=== PATIENT | female | born 1955 | race Caucasian/White ===

== ENCOUNTER 2019-06-03 11:08 | Inpatient (IN) | payer OTHER ==
[~2019-06-03] VITALS: Ht 157.5 cm; Wt 103.3 kg
--- NOTE | 2019-06-03 11:21 | NUR ---
PT BIB EMS FOR PROGRESSED SOB FROM YESTERDAY. PT STATES SOB INCREASED LAST NIGHT, HAD TO USE 2 L O2 AND WAS LOW 02 SAT. [facility] AND HAS HAD ISSUES W SOB W ALTITUDE INCREASE. RECENT HOSP FOR PNEUMONIA APPROX A MONTH AGO. PT IS ON 5 L AT 94% OXY MASK. PT DENIES CP. HAS SORE THROAT, INTERMITTENT COUGH. 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 EKG DONE. IV INSERT PER EMS.
[2019-06-03] MEDS ORDERED: MAGNESIUM SULFATE PMX 2GM/50ML 50 ML ONE (11:42)
[2019-06-03] MEDS ORDERED: SODIUM CHLORIDE 0.9% 1,000ML IVBOLUS ONE (12:00)
[2019-06-03] MEDS ORDERED: MAGNESIUM SULFATE PMX 2GM/50ML 50 ML IVPB ONE (12:00)
--- NOTE | 2019-06-03 12:20 | NUR ---
[facility] AT BEDSIDE DISCUSSING POC.
[2019-06-03] MEDS ORDERED: NICOTINE 14MG/24 HR PATCH.TD24 TD SCH (12:30)
[2019-06-03] MEDS ORDERED: BACLOFEN 10 MG TABLET PO PRN (12:30)
[2019-06-03] MEDS ORDERED: GLUCAGON 1 MG IM PRN (12:30)
[2019-06-03] MEDS ORDERED: DEXTROSE 4 GM TAB.CHEW PO PRN (12:30)
[2019-06-03] MEDS ORDERED: ONDANSETRON ODT 4 MG PO PRN (12:30)
[2019-06-03] MEDS ORDERED: hydrALAzine 20 MG/ML, 1ML IVPush PRN (12:30)
[2019-06-03] MEDS ORDERED: DEXTROSE 50%, 50ML SYRINGE IVPush PRN (12:30)
[2019-06-03 12:33] LABS: BASOPHILS # (AUTO) 0.08 x10^3/uL (0-0.1); BASOPHILS % (AUTO) 1 % (0-1); EOSINOPHILS # (AUTO) 0.08 x10^3/uL (0-0.4); EOSINOPHILS % (AUTO) 1 % (1-7); LYMPHOCYTES # (AUTO) 1.82 x10^3/uL (1-3.4); LYMPHOCYTES % (AUTO) 18 % (22-44); MD NO; MEAN CORPUSCULAR HEMOGLOBIN 28.1 pg (27.0-34.8); MEAN CORPUSCULAR HGB CONC 31.1 g/dL (32.4-35.8); MEAN CORPUSCULAR VOLUME 90.2 fL (80-100); MEAN PLATELET VOLUME 6.2 fL (7.4-10.4); MONOCYTES # (AUTO) 0.69 x10^3/uL (0.2-0.8); MONOCYTES % (AUTO) 7 % (2-9); NEUTROPHILS # (AUTO) 7.75 x10^3/uL (1.8-6.8); NEUTROPHILS % (AUTO) 74 % (42-75); PLATELET COUNT 279 x10^3/uL (130-400); RED CELL DISTRIBUTION WIDTH 21.3 % (9.6-15.2)
[2019-06-03 12:45] LABS: ALBUMIN 2.7 g/dL (3.4-5.0); ANION GAP 8 mmol/L (5-15); CALCIUM 8.4 mg/dL (8.5-10.1); CHLORIDE 98 mmol/L (98-107)
[2019-06-03 12:50] LABS: CREATININE 1.01 mg/dL (0.55-1.02)
[2019-06-03 12:51] LABS: TROPONIN I < 0.015 ng/mL (0.000-0.045)
[2019-06-03] MEDS ORDERED: SODIUM CHLORIDE FLUSH 10ML SYR IVF ONE (13:00)
[2019-06-03] MEDS: INSULIN GLARGINE 100 UNITS/ML, PEN SQ-INSULIN SCH (14:00)
[2019-06-03] MEDS ORDERED: METOPROLOL TARTRATE 50 MG TABLET ONE (14:32)
--- NOTE | 2019-06-03 14:40 | NUR ---
PT IN HOSPITAL BED FOR COMFORT. VS STABLE. PT DESATS W AMBULATION 87%. SITTING AT BEDSIDE, 89% ON 5 L NON REBREATHER. NO FURTHER NEEDS.
[2019-06-03] MEDS: METOPROLOL TARTRATE 50 MG TABLET PO SCH ×3 (14:42→17:29)
[2019-06-03] MEDS ORDERED: ATOR10TA9 PO (14:47)
[2019-06-03] MEDS ORDERED: INSU500V SQ (14:47)
[2019-06-03] MEDS ORDERED: LEVA0.6320 INH (14:47)
[2019-06-03] MEDS ORDERED: NPH,100V SC (14:47)
[2019-06-03] MEDS ORDERED: ACYC-114 PO (14:47)
[2019-06-03] MEDS ORDERED: FLUT1DIS3 INH (14:47)
[2019-06-03] MEDS ORDERED: IPRA0.2S35 INH (14:47)
[2019-06-03] MEDS ORDERED: GLIP10TA13 PO (14:47)
[2019-06-03] MEDS ORDERED: BACL20TA PO (14:47)
[2019-06-03] MEDS ORDERED: FURO40TA6 PO (14:47)
[2019-06-03] MEDS ORDERED: POTA20TA6 PO (14:47)
[2019-06-03] MEDS ORDERED: PANT40TA5 PO (14:55)
[2019-06-03] MEDS ORDERED: NICO1PAT31 TD (14:55)
[2019-06-03] MEDS ORDERED: METO25TA35 PO (14:55)
[2019-06-03] MEDS ORDERED: ONDA8TAB16 SL (14:55)
[2019-06-03] MEDS ORDERED: TIOT18CA INH (14:55)
--- NOTE | 2019-06-03 15:11 | NUR ---
BREAK RN: PT ON 100%NRB MASK AT 5L.. O2 DELIEVERY CHANGED TO OXY MASK AND RESP THERAPIST AT BEDSIDE FOR EVAL AND TREATMENT. TREATMENT COMPLETED AND OXY MASK 8L INPLACE. VS NOTED. CALL LIGHT W//I REACH, AT BEDSIDE.
--- NOTE | 2019-06-03 15:16 | NUR ---
PT CURRENTLY ON TAPERING PREDNISONE DOSAGES AT HOME. DISCUSSED WITH DR. BECERRA, HE WILL COVER WITH SOLUMEDROL. INSULIN PENS ORDERED FROM PHARMACY.
[2019-06-03] MEDS ORDERED: INSULIN LISPRO 100 UNITS/ML, PEN SQ-INSULIN SCH (16:00)
[2019-06-03] MEDS ORDERED: LEVOFLOXACIN/PMX 750MG/150ML 150 ML IV SCH (17:00)
[2019-06-03 17:04] VITALS: BP 123/76
[2019-06-03] MEDS: FUROSEMIDE 40 MG/4 ML IV SCH (17:06)
[2019-06-03] MEDS: methylPREDNISolone SOD SUCC 40 MG/ML IV SCH (17:06)
[2019-06-03] MEDS: NICOTINE 7 MG/24 HR PATCH.TD24 TD SCH (17:07)
[2019-06-03] MEDS: INSULIN LISPRO 100 UNITS/ML, PEN SQ-INSULIN SCH ×3 (17:07→22:03)
[2019-06-03] MEDS ORDERED: ENOXAPARIN 30 MG/0.3 ML SQ SCH (19:00)
[2019-06-03] MEDS: ALBUTEROL/IPRATROPIUM 2.5MG/0.5MG, 3 ML NPPB SCH (19:26)
[2019-06-03] MEDS: BUDESONIDE 0.5 MG/2 ML INHA NPPB SCH (19:26)
[2019-06-03 19:38] VITALS: BP 121/81
[2019-06-03] MEDS: SODIUM CHLORIDE FLUSH 10ML SYR IVF SCH (22:01)
[2019-06-03 23:59] VITALS: BP 114/70
[2019-06-04] MEDS ORDERED: FUROSEMIDE 40 MG/4 ML IVPush ONE
[2019-06-04] MEDS ORDERED: OMNIPAQUE 350 MG/ML, 100ML BOTTLE ONE (00:28)
[2019-06-04] MEDS: methylPREDNISolone SOD SUCC 40 MG/ML IV SCH ×3 (00:58→20:09)
[2019-06-04 01:05] VITALS: BP 106/71
[2019-06-04] MEDS ORDERED: TEMAZEPAM 15 MG CAPSULE ONE (01:11)
[2019-06-04] MEDS: TEMAZEPAM 15 MG CAPSULE PO PRN ×2 (01:14→20:10)
[2019-06-04] MEDS ORDERED: HEPARIN 5,000 UNITS/ML, 1ML IV ONE (01:30)
[2019-06-04 01:37] LABS: BASOPHILS # (AUTO) 0.36 x10^3/uL (0-0.1); BASOPHILS % (AUTO) 2 % (0-1); EOSINOPHILS # (AUTO) 0.01 x10^3/uL (0-0.4); EOSINOPHILS % (AUTO) 0 % (1-7); LYMPHOCYTES # (AUTO) 0.98 x10^3/uL (1-3.4); LYMPHOCYTES % (AUTO) 6 % (22-44); MD NO; MEAN CORPUSCULAR HEMOGLOBIN 27.9 pg (27.0-34.8); MEAN CORPUSCULAR VOLUME 90.1 fL (80-100); MEAN PLATELET VOLUME 6.5 fL (7.4-10.4); MONOCYTES # (AUTO) 0.77 x10^3/uL (0.2-0.8); MONOCYTES % (AUTO) 5 % (2-9); NEUTROPHILS # (AUTO) 13.71 x10^3/uL (1.8-6.8); NEUTROPHILS % (AUTO) 87 % (42-75); PLATELET COUNT 256 x10^3/uL (130-400); RED BLOOD COUNT 3.53 x10^6/uL (3.82-5.3)
[2019-06-04 01:48] LABS: ANION GAP 6 mmol/L (5-15); CALCIUM 8.6 mg/dL (8.5-10.1); CHLORIDE 97 mmol/L (98-107); CREATININE 0.99 mg/dL (0.55-1.02)
[2019-06-04] MEDS: HEPARIN 25,000 UNITS/500ML PMX 500 ML IV PRN (02:32)
[2019-06-04] MEDS ORDERED: PANTOPROZOLE 40MG TABLET PO SCH (06:00)
[2019-06-04 06:15] VITALS: BP 128/80
[2019-06-04] MEDS: METOPROLOL TARTRATE 50 MG TABLET PO SCH ×2 (06:16→17:19)
[2019-06-04 07:55] VITALS: BP 117/78
[2019-06-04] MEDS: ALBUTEROL/IPRATROPIUM 2.5MG/0.5MG, 3 ML NPPB SCH ×4 (08:05→19:45)
[2019-06-04] MEDS: BUDESONIDE 0.5 MG/2 ML INHA NPPB SCH ×2 (08:05→20:50)
[2019-06-04] MEDS: FUROSEMIDE 40 MG/4 ML IV SCH ×2 (08:43→17:19)
[2019-06-04] MEDS: INSULIN LISPRO 100 UNITS/ML, PEN SQ-INSULIN SCH ×7 (08:44→20:18)
[2019-06-04] MEDS: INSULIN GLARGINE 100 UNITS/ML, PEN SQ-INSULIN SCH (08:44)
[2019-06-04] MEDS: SODIUM CHLORIDE FLUSH 10ML SYR IVF SCH ×2 (08:45→20:21)
[2019-06-04 14:05] VITALS: BP 117/72
[2019-06-04] MEDS: HEPARIN 5,000 UNITS/ML, 1ML IV PRN ×2 (15:44→23:14)
[2019-06-04] MEDS ORDERED: PANTOPRAZOLE 80 MG in SODIUM CHLORIDE 0.9% 50 ML IV ONE (16:30)
[2019-06-04] MEDS ORDERED: LORazepam 2 MG/ML, 1ML IVPush PRN (16:30)
[2019-06-04 17:15] LABS: RAPID INFLUENZA A Negative (Negative); RAPID INFLUENZA B Negative (Negative)
[2019-06-04] MEDS: NICOTINE 7 MG/24 HR PATCH.TD24 TD SCH (17:19)
[2019-06-04] MEDS ORDERED: LEVOFLOXACIN/PMX 750MG/150ML 150 ML IV SCH (18:00)
[2019-06-04 19:21] LABS: TROPONIN I < 0.015 ng/mL (0.000-0.045)
[2019-06-04] MEDS: PANTOPRAZOLE 80 MG in SODIUM CHLORIDE 0.9% 100 ML IV SCH (19:57)
[2019-06-04] MEDS: DOXYCYCLINE 100 MG in DEXTROSE 5% 250 ML IV SCH (19:58)
[2019-06-04] MEDS: CEFTRIAXONE PMX 1GM/50ML 50 ML IV SCH (19:58)
[2019-06-05 01:49] LABS: TROPONIN I < 0.015 ng/mL (0.000-0.045)
[2019-06-05] MEDS: PANTOPRAZOLE 80 MG in SODIUM CHLORIDE 0.9% 100 ML IV SCH (02:32)
[2019-06-05] MEDS: HEPARIN 25,000 UNITS/500ML PMX 500 ML IV PRN (02:41)
[2019-06-05] MEDS: METOPROLOL TARTRATE 50 MG TABLET PO SCH ×3 (05:54→19:51)
[2019-06-05 06:25] LABS: ALANINE AMINOTRANSFERASE 24 U/L (12-78); ALBUMIN 2.4 g/dL (3.4-5.0); ANION GAP 7 mmol/L (5-15); CALCIUM 9.2 mg/dL (8.5-10.1); CHLORIDE 96 mmol/L (98-107); CREATININE 0.87 mg/dL (0.55-1.02)
[2019-06-05 06:30] LABS: ALKALINE PHOSPHATASE 90 U/L (45-117); BILIRUBIN,TOTAL 0.3 mg/dL (0.2-1.0); TOTAL PROTEIN 6.8 g/dL (6.4-8.2); TROPONIN I < 0.015 ng/mL (0.000-0.045)
[2019-06-05] MEDS: HEPARIN 5,000 UNITS/ML, 1ML IV PRN (06:36)
[2019-06-05 06:49] LABS: MEAN CORPUSCULAR HEMOGLOBIN 28.5 pg (27.0-34.8); MEAN CORPUSCULAR HGB CONC 31.3 g/dL (32.4-35.8); MEAN CORPUSCULAR VOLUME 91.3 fL (80-100); MEAN PLATELET VOLUME 6.2 fL (7.4-10.4); PLATELET COUNT 255 x10^3/uL (130-400); RED BLOOD COUNT 3.28 x10^6/uL (3.82-5.3); RED CELL DISTRIBUTION WIDTH 22.4 % (9.6-15.2)
[2019-06-05] MEDS: ALBUTEROL/IPRATROPIUM 2.5MG/0.5MG, 3 ML NPPB SCH ×4 (07:00→21:30)
[2019-06-05] MEDS: INSULIN LISPRO 100 UNITS/ML, PEN SQ-INSULIN SCH ×7 (07:00→19:59)
[2019-06-05] MEDS: BUDESONIDE 0.5 MG/2 ML INHA NPPB SCH ×2 (07:30→21:30)
[2019-06-05 07:41] LABS: BASOPHILS # (AUTO) 0.08 x10^3/uL (0-0.1); BASOPHILS % (AUTO) 1 % (0-1); EOSINOPHILS % (AUTO) 0 % (1-7); LYMPHOCYTES # (AUTO) 1.56 x10^3/uL (1-3.4); LYMPHOCYTES % (AUTO) 11 % (22-44); MD SCAN; MONOCYTES # (AUTO) 0.39 x10^3/uL (0.2-0.8); MONOCYTES % (AUTO) 3 % (2-9); NEUTROPHILS # (AUTO) 12.76 x10^3/uL (1.8-6.8); NEUTROPHILS % (AUTO) 86 % (42-75)
[2019-06-05] MEDS: DOXYCYCLINE 100 MG in DEXTROSE 5% 250 ML IV SCH ×2 (08:13→19:55)
[2019-06-05] MEDS: FUROSEMIDE 40 MG/4 ML IV SCH ×2 (08:30→18:00)
[2019-06-05] MEDS: INSULIN GLARGINE 100 UNITS/ML, PEN SQ-INSULIN SCH (08:30)
[2019-06-05] MEDS: PANTOPRAZOLE 40 MG IV IVPush SCH ×2 (08:30→19:51)
[2019-06-05] MEDS: SODIUM CHLORIDE FLUSH 10ML SYR IVF SCH ×2 (09:34→19:28)
[2019-06-05] MEDS: methylPREDNISolone SOD SUCC 40 MG/ML IV SCH ×2 (09:34→19:51)
[2019-06-05] MEDS: ENOXAPARIN 100 MG/ML SQ SCH ×2 (09:35→23:50)
[2019-06-05] MEDS: NICOTINE 7 MG/24 HR PATCH.TD24 TD SCH (18:00)
[2019-06-05] MEDS ORDERED: LEVOFLOXACIN/PMX 750MG/150ML 150 ML IV SCH (18:00)
[2019-06-05] MEDS: ONDANSETRON 2MG/ML, 2ML IVPush PRN (19:23)
[2019-06-05] MEDS ORDERED: METOPROLOL 1 MG/ML, 5ML IVPush ONE (19:30)
[2019-06-05] MEDS ORDERED: SODIUM CHLORIDE 0.9%, 500ML IVBOLUS ONE (19:30)
[2019-06-05] MEDS: CEFTRIAXONE PMX 1GM/50ML 50 ML IV SCH (19:55)
[2019-06-05 20:18] LABS: MEAN CORPUSCULAR HEMOGLOBIN 27.7 pg (27.0-34.8); MEAN CORPUSCULAR HGB CONC 30.4 g/dL (32.4-35.8); MEAN CORPUSCULAR VOLUME 91.2 fL (80-100); MEAN PLATELET VOLUME 6.8 fL (7.4-10.4); PLATELET COUNT 281 x10^3/uL (130-400); RED BLOOD COUNT 3.47 x10^6/uL (3.82-5.3); RED CELL DISTRIBUTION WIDTH 22.4 % (9.6-15.2)
[2019-06-05 20:22] LABS: TROPONIN I < 0.015 ng/mL (0.000-0.045)
[2019-06-05 20:27] LABS: MD YES
[2019-06-05] MEDS ORDERED: ESMOLOL/NS PMX 250 ML IV PRN (20:30)
[2019-06-05 20:50] LABS: LYMPH#(MANUAL) 0.51 x10^3/uL (1-3.4); LYMPHS% (MANUAL) 3 % (22-44); MONOS#(MANUAL) 0.17 x10^3/uL (0.3-2.7); MONOS% (MANUAL) 1 % (2-9); SEG#(MANUAL) 16.42 x10^3/uL (1.8-6.8); SEGS% (MANUAL) 96 % (42-75)
[2019-06-05 20:51] LABS: POLYCHROMASIA 1+
[2019-06-05 20:53] LABS: SPHEROCYTES 1+; TEAR DROPS 1+
[2019-06-05 20:54] LABS: <PLATELET ESTIMATE> ADEQUATE; <PLT MORPHOLOGY> NORMAL PLT MORPH; STOMATOCYTES 1+
[2019-06-05 20:57] LABS: ALANINE AMINOTRANSFERASE 26 U/L (12-78); ALBUMIN 2.4 g/dL (3.4-5.0); ANION GAP 11 mmol/L (5-15); CALCIUM 9.2 mg/dL (8.5-10.1); CHLORIDE 95 mmol/L (98-107); CREATININE 1.24 mg/dL (0.55-1.02)
[2019-06-05 20:59] LABS: ALKALINE PHOSPHATASE 105 U/L (45-117); BILIRUBIN,TOTAL 0.4 mg/dL (0.2-1.0); TOTAL PROTEIN 7.2 g/dL (6.4-8.2)
[2019-06-05] MEDS ORDERED: PHENYLEPHRINE 10 MG in SODIUM CHLORIDE 0.9% 249 ML IV PRN (21:30)
[2019-06-05] MEDS: ACETAMINOPHEN 325 MG TABLET PO PRN (21:43)
[2019-06-06] MEDS: ACETAMINOPHEN 325 MG TABLET PO PRN ×2 (04:48→22:30)
[2019-06-06 05:03] LABS: MEAN CORPUSCULAR HEMOGLOBIN 27.9 pg (27.0-34.8); MEAN CORPUSCULAR HGB CONC 30.5 g/dL (32.4-35.8); MEAN CORPUSCULAR VOLUME 91.7 fL (80-100); MEAN PLATELET VOLUME 6.4 fL (7.4-10.4); PLATELET COUNT 274 x10^3/uL (130-400); RED BLOOD COUNT 3.31 x10^6/uL (3.82-5.3); RED CELL DISTRIBUTION WIDTH 22.3 % (9.6-15.2)
[2019-06-06] MEDS: METOPROLOL TARTRATE 50 MG TABLET PO SCH ×3 (05:24→19:14)
[2019-06-06 05:44] LABS: MD YES
[2019-06-06 05:45] LABS: ANISOCYTOSIS 1+; BAND#(MANUAL) 0.28 x10^3/uL; BANDS%(MANUAL) 2 % (0-7); LYMPH#(MANUAL) 3.06 x10^3/uL (1-3.4); LYMPHS% (MANUAL) 22 % (22-44); METAMYELOCYTES# (MANUAL) 0.14 x10^3/uL (0-0); METAMYELOCYTES% (MANUAL) 1 % (0-1); MONOS#(MANUAL) 0.28 x10^3/uL (0.3-2.7); MONOS% (MANUAL) 2 % (2-9); MYELOCYTES# (MANUAL) 0.14 x10^3/uL (0-0); MYELOCYTES% (MANUAL) 1 % (0-0); POLYCHROMASIA 1+; SEG#(MANUAL) 10.01 x10^3/uL (1.8-6.8); SEGS% (MANUAL) 72 % (42-75)
[2019-06-06 05:46] LABS: <PLATELET ESTIMATE> ADEQUATE; <PLT MORPHOLOGY> NORMAL PLT MORPH
[2019-06-06] MEDS: INSULIN GLARGINE 100 UNITS/ML, PEN SQ-INSULIN SCH (05:57)
[2019-06-06] MEDS: INSULIN LISPRO 100 UNITS/ML, PEN SQ-INSULIN SCH ×8 (06:00→20:28)
[2019-06-06] MEDS ORDERED: SUCCINYLCHOLINE 20 MG/ML, 10ML ONE (06:14)
[2019-06-06] MEDS ORDERED: ETOMIDATE 20 MG/10 ML ONE (06:14)
[2019-06-06] MEDS ORDERED: PROPOFOL 10 MG/ML, 100ML IV ONE (06:14)
[2019-06-06] MEDS ORDERED: PANTOPROZOLE 40MG TABLET PO SCH (06:30)
[2019-06-06] MEDS: ALBUTEROL/IPRATROPIUM 2.5MG/0.5MG, 3 ML NPPB SCH (06:56)
[2019-06-06] MEDS: FUROSEMIDE 40 MG/4 ML IV SCH ×2 (07:43→17:02)
[2019-06-06] MEDS: methylPREDNISolone SOD SUCC 40 MG/ML IV SCH ×2 (07:43→20:25)
[2019-06-06] MEDS: SODIUM CHLORIDE FLUSH 10ML SYR IVF SCH ×3 (07:44→19:13)
[2019-06-06] MEDS: METOLAZONE 5 MG TABLET PO SCH ×2 (08:07→17:03)
[2019-06-06] MEDS: DOXYCYCLINE 100 MG in DEXTROSE 5% 250 ML IV SCH ×2 (08:07→19:14)
[2019-06-06] MEDS: PANTOPROZOLE 40MG TABLET PO SCH ×2 (08:07→20:25)
[2019-06-06] MEDS: BUDESONIDE 0.5 MG/2 ML INHA NPPB SCH ×2 (09:00→18:36)
[2019-06-06] MEDS ORDERED: DEXTROSE 50%, 50ML SYRINGE IVPush PRN (10:00)
[2019-06-06] MEDS ORDERED: SENNA/DOCUSATE TABLET NG PRN (10:00)
[2019-06-06] MEDS ORDERED: PHARMACY MAY ADJ FOR RENAL FX MC SCH (10:00)
[2019-06-06] MEDS ORDERED: GLUCAGON 1 MG IM PRN (10:00)
[2019-06-06] MEDS ORDERED: DEXTROSE 4 GM TAB.CHEW PO PRN (10:00)
[2019-06-06] MEDS ORDERED: LACTULOSE 20 GM/30 ML UDC NG PRN (10:00)
[2019-06-06] MEDS ORDERED: BISACODYL 10 MG SUPP PR PRN (10:00)
[2019-06-06] MEDS: ALBUTEROL/IPRATROPIUM 2.5MG/0.5MG, 3 ML INLINE SCH ×4 (10:00→23:05)
[2019-06-06] MEDS ORDERED: SENNA 176 MG/5 ML ORAL SOL NG PRN (10:00)
[2019-06-06] MEDS ORDERED: ETOMIDATE 20 MG/10 ML IVPush ONE (10:30)
[2019-06-06] MEDS ORDERED: SUCCINYLCHOLINE 20 MG/ML, 10ML IVPush ONE (10:30)
[2019-06-06] MEDS: PROPOFOL 100 ML IV PRN ×3 (11:34→20:25)
[2019-06-06] MEDS: ENOXAPARIN 100 MG/ML SQ SCH (14:04)
[2019-06-06] MEDS: FENTANYL PF 100 MCG/2ML IVPush PRN (15:41)
[2019-06-06] MEDS ORDERED: PANTOPRAZOLE 40 MG IV IV SCH (16:00)
[2019-06-06] MEDS: NICOTINE 7 MG/24 HR PATCH.TD24 TD SCH (17:02)
[2019-06-06] MEDS: CEFTRIAXONE PMX 1GM/50ML 50 ML IV SCH (19:14)
[2019-06-06] MEDS ORDERED: DEXMEDETOMIDINE 1,000 MCG in SODIUM CHLORIDE 0.9% 240 ML IV PRN (21:00)
[2019-06-07] MEDS: ALBUTEROL/IPRATROPIUM 2.5MG/0.5MG, 3 ML INLINE SCH ×6 (01:59→22:17)
[2019-06-07] MEDS: ENOXAPARIN 100 MG/ML SQ SCH ×2 (02:46→14:03)
[2019-06-07] MEDS: INSULIN LISPRO 100 UNITS/ML, PEN SQ-INSULIN SCH ×8 (04:09→20:21)
[2019-06-07 04:30] LABS: MEAN CORPUSCULAR HEMOGLOBIN 28.2 pg (27.0-34.8); MEAN CORPUSCULAR HGB CONC 31.5 g/dL (32.4-35.8); MEAN CORPUSCULAR VOLUME 89.4 fL (80-100); MEAN PLATELET VOLUME 6.8 fL (7.4-10.4); PLATELET COUNT 229 x10^3/uL (130-400); RED BLOOD COUNT 3.09 x10^6/uL (3.82-5.3); RED CELL DISTRIBUTION WIDTH 22.3 % (9.6-15.2)
[2019-06-07 04:39] LABS: ANION GAP 9 mmol/L (5-15); CALCIUM 8.8 mg/dL (8.5-10.1); CHLORIDE 92 mmol/L (98-107); CREATININE 1.07 mg/dL (0.55-1.02)
[2019-06-07 05:02] LABS: BASOPHILS # (AUTO) 0.07 x10^3/uL (0-0.1); BASOPHILS % (AUTO) 1 % (0-1); EOSINOPHILS # (AUTO) 0.05 x10^3/uL (0-0.4); EOSINOPHILS % (AUTO) 1 % (1-7); LYMPHOCYTES # (AUTO) 1.34 x10^3/uL (1-3.4); LYMPHOCYTES % (AUTO) 16 % (22-44); MD SCAN; MONOCYTES # (AUTO) 0.32 x10^3/uL (0.2-0.8); MONOCYTES % (AUTO) 4 % (2-9); NEUTROPHILS % (AUTO) 79 % (42-75)
[2019-06-07] MEDS: ACETAMINOPHEN 325 MG TABLET PO PRN (05:16)
[2019-06-07] MEDS: METOPROLOL TARTRATE 50 MG TABLET PO SCH ×2 (05:16→17:30)
[2019-06-07] MEDS: BUDESONIDE 0.5 MG/2 ML INHA NPPB SCH ×2 (06:05→18:24)
[2019-06-07] MEDS: methylPREDNISolone SOD SUCC 40 MG/ML IV SCH ×2 (08:11→20:11)
[2019-06-07] MEDS: PANTOPROZOLE 40MG TABLET PO SCH ×2 (08:11→20:12)
[2019-06-07] MEDS: SODIUM CHLORIDE FLUSH 10ML SYR IVF SCH ×2 (08:12→20:11)
[2019-06-07] MEDS: OXYcodone IR 5MG TABLET PO PRN (08:12)
[2019-06-07] MEDS: INSULIN GLARGINE 100 UNITS/ML, PEN SQ-INSULIN SCH (08:14)
[2019-06-07] MEDS ORDERED: FUROSEMIDE 40 MG/4 ML IV SCH (09:00)
[2019-06-07] MEDS: LIDOCAINE-MPF 1%, 2ML ENDO PRN (09:00)
[2019-06-07] MEDS ORDERED: METOLAZONE 5 MG TABLET PO SCH (09:00)
[2019-06-07] MEDS: FENTANYL PF 100 MCG/2ML IVPush PRN ×3 (09:25→18:42)
[2019-06-07] MEDS: PROPOFOL 100 ML IV PRN ×2 (15:44→20:11)
[2019-06-07] MEDS: NICOTINE 7 MG/24 HR PATCH.TD24 TD SCH (16:25)
[2019-06-07] MEDS: CEFTRIAXONE PMX 1GM/50ML 50 ML IV SCH (20:11)
[2019-06-08] MEDS: PROPOFOL 100 ML IV PRN ×6 (01:03→23:24)
[2019-06-08] MEDS: FENTANYL PF 100 MCG/2ML IVPush PRN ×3 (03:03→17:51)
[2019-06-08] MEDS: ENOXAPARIN 100 MG/ML SQ SCH ×2 (03:03→14:47)
[2019-06-08] MEDS: ALBUTEROL/IPRATROPIUM 2.5MG/0.5MG, 3 ML INLINE SCH ×6 (03:41→22:40)
[2019-06-08] MEDS: INSULIN LISPRO 100 UNITS/ML, PEN SQ-INSULIN SCH ×5 (04:10→20:20)
[2019-06-08 04:46] LABS: MEAN CORPUSCULAR HEMOGLOBIN 27.8 pg (27.0-34.8); MEAN CORPUSCULAR VOLUME 89.6 fL (80-100); MEAN PLATELET VOLUME 7.1 fL (7.4-10.4); PLATELET COUNT 261 x10^3/uL (130-400); RED BLOOD COUNT 3.24 x10^6/uL (3.82-5.3); RED CELL DISTRIBUTION WIDTH 22.1 % (9.6-15.2)
[2019-06-08 04:56] LABS: ANION GAP 8 mmol/L (5-15); CHLORIDE 91 mmol/L (98-107)
[2019-06-08 04:57] LABS: CREATININE 0.79 mg/dL (0.55-1.02)
[2019-06-08] MEDS: METOPROLOL TARTRATE 50 MG TABLET PO SCH ×2 (05:29→17:13)
[2019-06-08 05:42] LABS: BASOPHILS # (AUTO) 0.23 x10^3/uL (0-0.1); BASOPHILS % (AUTO) 3 % (0-1); EOSINOPHILS # (AUTO) 0.05 x10^3/uL (0-0.4); EOSINOPHILS % (AUTO) 1 % (1-7); LYMPHOCYTES # (AUTO) 0.89 x10^3/uL (1-3.4); LYMPHOCYTES % (AUTO) 11 % (22-44); MD SCAN; MONOCYTES # (AUTO) 0.37 x10^3/uL (0.2-0.8); MONOCYTES % (AUTO) 5 % (2-9); NEUTROPHILS # (AUTO) 6.23 x10^3/uL (1.8-6.8); NEUTROPHILS % (AUTO) 80 % (42-75)
[2019-06-08] MEDS: BUDESONIDE 0.5 MG/2 ML INHA NPPB SCH ×2 (06:10→22:40)
[2019-06-08] MEDS: AcetaZOLAMIDE INJ 500 MG IVPush SCH ×2 (08:14→20:20)
[2019-06-08] MEDS: INSULIN GLARGINE 100 UNITS/ML, PEN SQ-INSULIN SCH (08:14)
[2019-06-08] MEDS: methylPREDNISolone SOD SUCC 40 MG/ML IV SCH ×2 (08:15→20:20)
[2019-06-08] MEDS: SODIUM CHLORIDE FLUSH 10ML SYR IVF SCH ×2 (08:15→20:21)
[2019-06-08] MEDS: PANTOPRAZOLE 40 MG IV IVPush SCH ×2 (08:20→20:20)
--- NOTE | 2019-06-08 10:42 | NUR ---
TF GOAL with or without propofol: VITAL HIGH PROTEIN @ 55ML/HR
[2019-06-08] MEDS ORDERED: INSULIN LISPRO 100 UNITS/ML, PEN SQ-INSULIN SCH (11:00)
[2019-06-08] MEDS: NICOTINE 7 MG/24 HR PATCH.TD24 TD SCH (17:14)
[2019-06-08] MEDS: OXYcodone IR 5MG TABLET PO PRN (19:44)
[2019-06-08] MEDS: CEFTRIAXONE PMX 1GM/50ML 50 ML IV SCH (20:15)
[2019-06-08] MEDS: TEMAZEPAM 15 MG CAPSULE PO PRN (22:44)
[2019-06-09] MEDS: ENOXAPARIN 100 MG/ML SQ SCH ×2 (02:07→13:50)
[2019-06-09] MEDS: ALBUTEROL/IPRATROPIUM 2.5MG/0.5MG, 3 ML INLINE SCH ×2 (02:37→06:45)
[2019-06-09] MEDS: INSULIN LISPRO 100 UNITS/ML, PEN SQ-INSULIN SCH ×4 (04:09→20:28)
[2019-06-09] MEDS: PROPOFOL 100 ML IV PRN (04:09)
[2019-06-09] MEDS: LIDOCAINE-MPF 1%, 2ML ENDO PRN (04:30)
[2019-06-09 04:37] LABS: BASOPHILS # (AUTO) 0.08 x10^3/uL (0-0.1); BASOPHILS % (AUTO) 1 % (0-1); EOSINOPHILS % (AUTO) 0 % (1-7); LYMPHOCYTES % (AUTO) 11 % (22-44); MD NO; MEAN CORPUSCULAR HEMOGLOBIN 28.1 pg (27.0-34.8); MEAN CORPUSCULAR HGB CONC 31.5 g/dL (32.4-35.8); MEAN CORPUSCULAR VOLUME 89.3 fL (80-100); MONOCYTES # (AUTO) 0.25 x10^3/uL (0.2-0.8); MONOCYTES % (AUTO) 3 % (2-9); NEUTROPHILS # (AUTO) 6.47 x10^3/uL (1.8-6.8); NEUTROPHILS % (AUTO) 85 % (42-75); PLATELET COUNT 279 x10^3/uL (130-400); RED BLOOD COUNT 3.13 x10^6/uL (3.82-5.3); RED CELL DISTRIBUTION WIDTH 21.8 % (9.6-15.2)
[2019-06-09 04:44] LABS: ANION GAP 9 mmol/L (5-15); CALCIUM 9.1 mg/dL (8.5-10.1); CHLORIDE 92 mmol/L (98-107)
[2019-06-09 04:48] LABS: CREATININE 0.95 mg/dL (0.55-1.02); TRIGLYCERIDES 307 mg/dL (50-200)
[2019-06-09] MEDS: METOPROLOL TARTRATE 50 MG TABLET PO SCH ×2 (05:13→16:15)
[2019-06-09] MEDS: OXYcodone IR 5MG TABLET PO PRN ×2 (05:13→23:41)
[2019-06-09] MEDS: BUDESONIDE 0.5 MG/2 ML INHA NPPB SCH ×2 (06:45→20:06)
[2019-06-09] MEDS ORDERED: INSULIN GLARGINE 100 UNITS/ML, PEN SQ-INSULIN SCH (07:30)
[2019-06-09] MEDS: methylPREDNISolone SOD SUCC 40 MG/ML IV SCH ×2 (07:43→20:26)
[2019-06-09] MEDS: SODIUM CHLORIDE FLUSH 10ML SYR IVF SCH ×2 (07:43→20:27)
[2019-06-09] MEDS: PANTOPRAZOLE 40 MG IV IVPush SCH ×2 (07:43→20:26)
[2019-06-09] MEDS ORDERED: FUROSEMIDE 40 MG/4 ML IV ONE (09:30)
[2019-06-09] MEDS: ALBUTEROL/IPRATROPIUM 2.5MG/0.5MG, 3 ML NPPB SCH ×2 (15:50→20:06)
[2019-06-09] MEDS ORDERED: ACYCLOVIR 400 MG TABLET ONE (16:36)
[2019-06-09] MEDS: NICOTINE 7 MG/24 HR PATCH.TD24 TD SCH (16:43)
[2019-06-09] MEDS: ACYCLOVIR 400 MG TABLET PO SCH (16:44)
[2019-06-09] MEDS ORDERED: POTASSIUM CHLORIDE 20 MEQ TAB.ER.PRT PO SCH (17:00)
[2019-06-09] MEDS ORDERED: ACYCLOVIR 400 MG TABLET PO SCH (17:00)
[2019-06-09] MEDS ORDERED: METOPROLOL TARTRATE 25 MG TABLET ONE (18:33)
[2019-06-09] MEDS ORDERED: METOPROLOL TARTRATE 25 MG TABLET PO ONE ×2 (19:00→20:00)
[2019-06-09] MEDS: CEFTRIAXONE PMX 1GM/50ML 50 ML IV SCH (19:20)
[2019-06-09] MEDS ORDERED: METOPROLOL 1 MG/ML, 5ML ONE (19:33)
[2019-06-09] MEDS ORDERED: METOPROLOL 1 MG/ML, 5ML IVPush ONE (20:00)
[2019-06-09] MEDS ORDERED: ESMOLOL/NS PMX 250 ML IV PRN (20:00)
[2019-06-09] MEDS ORDERED: ESMOLOL 100 MG/10 ML IV ONE (20:00)
[2019-06-09] MEDS: TEMAZEPAM 15 MG CAPSULE PO PRN ×2 (20:39→22:37)
[2019-06-09] MEDS ORDERED: ESMOLOL 100 MG/10 ML IV PRN (22:00)
[2019-06-09] MEDS ORDERED: DIPHENHYDRAMINE 25 MG CAPSULE ONE ×2 (23:49)
[2019-06-09] MEDS: DIPHENHYDRAMINE 25 MG CAPSULE PO PRN (23:51)
[2019-06-10] MEDS ORDERED: DIPHENHYDRAMINE 50 MG CAPSULE PO PRN
[2019-06-10] MEDS: ENOXAPARIN 100 MG/ML SQ SCH (02:00)
[2019-06-10 04:19] LABS: MEAN CORPUSCULAR HEMOGLOBIN 27.5 pg (27.0-34.8); MEAN CORPUSCULAR HGB CONC 30.5 g/dL (32.4-35.8); MEAN PLATELET VOLUME 6.6 fL (7.4-10.4); PLATELET COUNT 280 x10^3/uL (130-400); RED BLOOD COUNT 3.31 x10^6/uL (3.82-5.3); RED CELL DISTRIBUTION WIDTH 22.1 % (9.6-15.2)
[2019-06-10] MEDS: INSULIN LISPRO 100 UNITS/ML, PEN SQ-INSULIN SCH ×4 (04:19→21:04)
[2019-06-10 04:26] LABS: ANION GAP 8 mmol/L (5-15); CALCIUM 8.6 mg/dL (8.5-10.1); CHLORIDE 97 mmol/L (98-107); CREATININE 0.88 mg/dL (0.55-1.02)
[2019-06-10 04:32] LABS: BASOPHILS # (AUTO) 0.09 x10^3/uL (0-0.1); BASOPHILS % (AUTO) 1 % (0-1); EOSINOPHILS # (AUTO) 0.02 x10^3/uL (0-0.4); EOSINOPHILS % (AUTO) 0 % (1-7); LYMPHOCYTES # (AUTO) 1.13 x10^3/uL (1-3.4); LYMPHOCYTES % (AUTO) 14 % (22-44); MD SCAN; MONOCYTES # (AUTO) 0.33 x10^3/uL (0.2-0.8); MONOCYTES % (AUTO) 4 % (2-9); NEUTROPHILS # (AUTO) 6.71 x10^3/uL (1.8-6.8); NEUTROPHILS % (AUTO) 81 % (42-75)
[2019-06-10] MEDS ORDERED: DIGOXIN 0.25 MG/ML, 2ML IVPush ONE (07:00)
[2019-06-10] MEDS ORDERED: INSULIN GLARGINE 100 UNITS/ML, PEN SQ-INSULIN SCH (07:30)
[2019-06-10] MEDS: BUDESONIDE 0.5 MG/2 ML INHA NPPB SCH ×2 (07:30→18:39)
[2019-06-10] MEDS: ALBUTEROL/IPRATROPIUM 2.5MG/0.5MG, 3 ML NPPB SCH ×4 (07:30→18:39)
[2019-06-10] MEDS: METOPROLOL TARTRATE 25 MG TABLET PO SCH ×3 (08:10→22:24)
[2019-06-10] MEDS: PANTOPROZOLE 40MG TABLET PO SCH ×2 (08:10→16:31)
[2019-06-10] MEDS: RIVAROXABAN 20 MG TABLET PO SCH (08:10)
[2019-06-10] MEDS: ACYCLOVIR 400 MG TABLET PO SCH (09:12)
[2019-06-10] MEDS: methylPREDNISolone SOD SUCC 40 MG/ML IV SCH ×2 (09:12→19:31)
[2019-06-10] MEDS: SODIUM CHLORIDE FLUSH 10ML SYR IVF SCH ×2 (09:13→19:31)
[2019-06-10] MEDS ORDERED: FUROSEMIDE 40 MG/4 ML IV ONE (10:30)
[2019-06-10] MEDS: DIPHENHYDRAMINE 25 MG CAPSULE PO PRN (16:37)
[2019-06-10] MEDS: NICOTINE 7 MG/24 HR PATCH.TD24 TD SCH (17:00)
[2019-06-10] MEDS ORDERED: ESMOLOL/NS PMX 250 ML IV PRN (20:00)
[2019-06-10] MEDS: CEFTRIAXONE PMX 1GM/50ML 50 ML IV SCH (21:03)
[2019-06-10] MEDS: OXYcodone IR 5MG TABLET PO PRN (21:51)
[2019-06-10] MEDS: TEMAZEPAM 15 MG CAPSULE PO PRN (21:51)
[2019-06-11] MEDS ORDERED: DIGOXIN 0.25 MG/ML, 2ML IVPush ONE (03:30)
[2019-06-11] MEDS ORDERED: ESMOLOL 100 MG/10 ML IV ONE (05:00)
[2019-06-11] MEDS ORDERED: [UNRECOGNIZED DRUG - OTHER] IV ONE (05:00)
[2019-06-11] MEDS ORDERED: ESMOLOL IV ONE (05:00)
[2019-06-11] MEDS: PANTOPROZOLE 40MG TABLET PO SCH ×2 (06:00→15:32)
[2019-06-11] MEDS: RIVAROXABAN 20 MG TABLET PO SCH (06:00)
[2019-06-11] MEDS: METOPROLOL TARTRATE 25 MG TABLET PO SCH ×3 (06:01→23:56)
[2019-06-11] MEDS: INSULIN LISPRO 100 UNITS/ML, PEN SQ-INSULIN SCH ×4 (06:11→20:48)
[2019-06-11] MEDS: ALBUTEROL/IPRATROPIUM 2.5MG/0.5MG, 3 ML NPPB SCH ×4 (07:00→20:52)
[2019-06-11] MEDS: BUDESONIDE 0.5 MG/2 ML INHA NPPB SCH ×2 (07:00→20:52)
[2019-06-11] MEDS: DIGOXIN 0.25 MG/ML, 2ML IVPush SCH (08:46)
[2019-06-11] MEDS: SODIUM CHLORIDE FLUSH 10ML SYR IVF SCH ×2 (08:48→21:00)
[2019-06-11] MEDS: INSULIN GLARGINE 100 UNITS/ML, PEN SQ-INSULIN SCH (08:48)
[2019-06-11] MEDS: ACYCLOVIR 400 MG TABLET PO SCH (08:50)
[2019-06-11 11:14] VITALS: BP 138/84
[2019-06-11 12:45] VITALS: BP 154/86
[2019-06-11] MEDS: NICOTINE 7 MG/24 HR PATCH.TD24 TD SCH (15:36)
[2019-06-11] MEDS: CEFTRIAXONE PMX 1GM/50ML 50 ML IV SCH (20:47)
[2019-06-11] MEDS: TEMAZEPAM 15 MG CAPSULE PO PRN (21:12)
[2019-06-11] MEDS: OXYcodone IR 5MG TABLET PO PRN (21:12)
[2019-06-11 22:00] VITALS: BP 133/78
[2019-06-12] VITALS (8 sets, daily range): BP systolic 90–137; BP diastolic 60–78
[2019-06-12] MEDS: DIGOXIN 0.25 MG/ML, 2ML IVPush SCH (02:26)
[2019-06-12] MEDS ORDERED: DILTIAZEM 5 MG/ML, 5ML IVPush ONE (03:30)
[2019-06-12] MEDS: LIDODERM 5% PATCH TD SCH (05:00)
[2019-06-12] MEDS ORDERED: NITROGLYCERIN 0.4 MG/SPRAY SL PRN (05:00)
[2019-06-12] MEDS ORDERED: NITROGLYCERIN 0.4 MG BOTTLE (25 TABS) SL PRN (05:00)
[2019-06-12 05:41] LABS: ANION GAP 7 mmol/L (5-15); CALCIUM 9.1 mg/dL (8.5-10.1); CHLORIDE 101 mmol/L (98-107)
[2019-06-12 05:44] LABS: TROPONIN I 0.072 ng/mL (0.000-0.045)
[2019-06-12 06:18] LABS: MEAN CORPUSCULAR HEMOGLOBIN 27.3 pg (27.0-34.8); MEAN CORPUSCULAR HGB CONC 30.8 g/dL (32.4-35.8); MEAN CORPUSCULAR VOLUME 88.8 fL (80-100); MEAN PLATELET VOLUME 7.1 fL (7.4-10.4); PLATELET COUNT 322 x10^3/uL (130-400); RED BLOOD COUNT 3.64 x10^6/uL (3.82-5.3); RED CELL DISTRIBUTION WIDTH 21.6 % (9.6-15.2)
[2019-06-12] MEDS: RIVAROXABAN 20 MG TABLET PO SCH (06:21)
[2019-06-12] MEDS: PANTOPROZOLE 40MG TABLET PO SCH ×2 (06:21→17:55)
[2019-06-12] MEDS: INSULIN LISPRO 100 UNITS/ML, PEN SQ-INSULIN SCH ×4 (07:00→21:01)
[2019-06-12] MEDS: BUDESONIDE 0.5 MG/2 ML INHA NPPB SCH ×2 (07:20→19:11)
[2019-06-12] MEDS: ALBUTEROL/IPRATROPIUM 2.5MG/0.5MG, 3 ML NPPB SCH ×4 (07:20→19:11)
[2019-06-12] MEDS: INSULIN GLARGINE 100 UNITS/ML, PEN SQ-INSULIN SCH (07:30)
[2019-06-12 07:41] LABS: MD YES
[2019-06-12 07:43] LABS: <PLATELET ESTIMATE> ADEQUATE; <PLT MORPHOLOGY> NORMAL PLT MORPH; ANISOCYTOSIS 2+; BAND#(MANUAL) 0.12 x10^3/uL; BANDS%(MANUAL) 1 % (0-7); LYMPHS% (MANUAL) 40 % (22-44); METAMYELOCYTES# (MANUAL) 0.12 x10^3/uL (0-0); METAMYELOCYTES% (MANUAL) 1 % (0-1); MONOS#(MANUAL) 0.24 x10^3/uL (0.3-2.7); MONOS% (MANUAL) 2 % (2-9); POLYCHROMASIA 1+; SEG#(MANUAL) 6.72 x10^3/uL (1.8-6.8); SEGS% (MANUAL) 56 % (42-75)
[2019-06-12] MEDS: METOPROLOL TARTRATE 25 MG TABLET PO SCH ×2 (09:06→17:55)
[2019-06-12] MEDS: morphine SULFATE 10 MG/ML, 1ML IVPush PRN ×2 (09:30→14:17)
[2019-06-12] MEDS: SODIUM CHLORIDE FLUSH 10ML SYR IVF SCH ×2 (10:45→20:54)
[2019-06-12] MEDS: ACYCLOVIR 400 MG TABLET PO SCH (10:45)
[2019-06-12 11:29] LABS: TROPONIN I 0.064 ng/mL (0.000-0.045)
[2019-06-12] MEDS ORDERED: DILTIAZEM 125 MG in SODIUM CHLORIDE 0.9% 100 ML IV SCH (12:00)
[2019-06-12] MEDS: FUROSEMIDE 40 MG/4 ML IV SCH ×2 (12:30→20:54)
[2019-06-12] MEDS: NICOTINE 7 MG/24 HR PATCH.TD24 TD SCH (17:00)
[2019-06-12 17:01] LABS: TROPONIN I 0.103 ng/mL (0.000-0.045)
[2019-06-12] MEDS: CEFTRIAXONE PMX 1GM/50ML 50 ML IV SCH (20:54)
[2019-06-12 22:55] LABS: TROPONIN I 0.078 ng/mL (0.000-0.045)
[2019-06-13] VITALS (11 sets, daily range): BP systolic 94–116; BP diastolic 55–83
[2019-06-13] MEDS: METOPROLOL TARTRATE 25 MG TABLET PO SCH ×3 (01:43→17:00)
[2019-06-13] MEDS: morphine SULFATE 10 MG/ML, 1ML IVPush PRN ×3 (04:13→07:33)
[2019-06-13 05:44] LABS: CHLORIDE 95 mmol/L (98-107)
[2019-06-13] MEDS: LIDODERM 5% PATCH TD SCH (05:49)
[2019-06-13] MEDS: PANTOPROZOLE 40MG TABLET PO SCH ×2 (05:49→18:07)
[2019-06-13] MEDS: RIVAROXABAN 20 MG TABLET PO SCH (05:49)
[2019-06-13 05:58] LABS: MEAN CORPUSCULAR HEMOGLOBIN 28.1 pg (27.0-34.8); MEAN CORPUSCULAR HGB CONC 31.9 g/dL (32.4-35.8); MEAN CORPUSCULAR VOLUME 88.2 fL (80-100); MEAN PLATELET VOLUME 6.9 fL (7.4-10.4); PLATELET COUNT 287 x10^3/uL (130-400); RED BLOOD COUNT 3.38 x10^6/uL (3.82-5.3); RED CELL DISTRIBUTION WIDTH 21.3 % (9.6-15.2)
[2019-06-13 06:04] LABS: ANION GAP 8 mmol/L (5-15); CALCIUM 8.5 mg/dL (8.5-10.1); CREATININE 0.64 mg/dL (0.55-1.02)
[2019-06-13 06:30] LABS: BASOPHILS # (AUTO) 0.14 x10^3/uL (0-0.1); BASOPHILS % (AUTO) 1 % (0-1); EOSINOPHILS # (AUTO) 0.12 x10^3/uL (0-0.4); EOSINOPHILS % (AUTO) 1 % (1-7); LYMPHOCYTES # (AUTO) 2.19 x10^3/uL (1-3.4); LYMPHOCYTES % (AUTO) 22 % (22-44); MD SCAN; MONOCYTES % (AUTO) 5 % (2-9); NEUTROPHILS # (AUTO) 7.05 x10^3/uL (1.8-6.8); NEUTROPHILS % (AUTO) 71 % (42-75)
[2019-06-13] MEDS ORDERED: DILTIAZEM 125 MG in SODIUM CHLORIDE 0.9% 100 ML IV SCH (07:30)
[2019-06-13] MEDS: BUDESONIDE 0.5 MG/2 ML INHA NPPB SCH ×2 (08:05→22:40)
[2019-06-13] MEDS: ALBUTEROL/IPRATROPIUM 2.5MG/0.5MG, 3 ML NPPB SCH ×4 (08:15→22:40)
[2019-06-13] MEDS ORDERED: DIGOXIN 0.25 MG/ML, 2ML IVPush ONE ×2 (08:30→10:00)
[2019-06-13] MEDS: ACYCLOVIR 400 MG TABLET PO SCH (09:20)
[2019-06-13] MEDS: SODIUM CHLORIDE FLUSH 10ML SYR IVF SCH ×2 (09:20→20:38)
[2019-06-13] MEDS: FUROSEMIDE 40 MG/4 ML IV SCH (09:20)
[2019-06-13] MEDS: INSULIN LISPRO 100 UNITS/ML, PEN SQ-INSULIN SCH ×4 (09:34→20:37)
[2019-06-13] MEDS: INSULIN GLARGINE 100 UNITS/ML, PEN SQ-INSULIN SCH (09:35)
[2019-06-13] MEDS: POTASSIUM CHLORIDE 20 MEQ TAB.ER.PRT PO SCH ×2 (09:54→18:07)
[2019-06-13] MEDS ORDERED: MAGNESIUM SULFATE PMX 2GM/50ML 50 ML IV ONE (10:30)
[2019-06-13] MEDS ORDERED: POTASSIUM CHLORIDE 20 MEQ TAB.ER.PRT PO ONE (10:30)
[2019-06-13] MEDS: ONDANSETRON 2MG/ML, 2ML IVPush PRN (10:41)
[2019-06-13] MEDS: NICOTINE 7 MG/24 HR PATCH.TD24 TD SCH (17:00)
[2019-06-13] MEDS ORDERED: POTASSIUM CHLORIDE 20 MEQ TAB.ER.PRT PO SCH (17:00)
[2019-06-13] MEDS: FUROSEMIDE 40 MG TABLET PO SCH (18:07)
[2019-06-13] MEDS ORDERED: BISACODYL 10 MG SUPP PR PRN (18:30)
[2019-06-13] MEDS: OXYcodone IR 5MG TABLET PO PRN (20:58)
[2019-06-14] MEDS: METOPROLOL TARTRATE 25 MG TABLET PO SCH ×3 (01:00→17:56)
[2019-06-14 01:34] VITALS: BP 131/77
[2019-06-14] MEDS: LIDODERM 5% PATCH TD SCH (05:00)
[2019-06-14 05:47] LABS: CHLORIDE 96 mmol/L (98-107)
[2019-06-14 05:57] LABS: ALANINE AMINOTRANSFERASE 38 U/L (12-78); ALBUMIN 2.6 g/dL (3.4-5.0); ALKALINE PHOSPHATASE 85 U/L (45-117); ANION GAP 4 mmol/L (5-15); BILIRUBIN,TOTAL 0.5 mg/dL (0.2-1.0); CALCIUM 8.7 mg/dL (8.5-10.1); CREATININE 0.89 mg/dL (0.55-1.02); TOTAL PROTEIN 6.8 g/dL (6.4-8.2)
[2019-06-14] MEDS ORDERED: HEPARIN 25,000 UNITS/500ML PMX 500 ML IV PRN (06:00)
[2019-06-14] MEDS ORDERED: HEPARIN 5,000 UNITS/ML, 1ML IV PRN (06:00)
[2019-06-14] MEDS ORDERED: HEPARIN 5,000 UNITS/ML, 1ML IV ONE (06:00)
[2019-06-14] MEDS: PANTOPROZOLE 40MG TABLET PO SCH ×2 (06:10→16:14)
[2019-06-14] MEDS: ALBUTEROL/IPRATROPIUM 2.5MG/0.5MG, 3 ML NPPB SCH ×4 (06:36→19:08)
[2019-06-14] MEDS ORDERED: DILTIAZEM 125 MG in SODIUM CHLORIDE 0.9% 100 ML IV SCH (07:30)
[2019-06-14] MEDS ORDERED: INSULIN GLARGINE 100 UNITS/ML, PEN SQ-INSULIN SCH (07:30)
[2019-06-14] MEDS: INSULIN LISPRO 100 UNITS/ML, PEN SQ-INSULIN SCH ×4 (08:09→22:36)
[2019-06-14] MEDS: ONDANSETRON 2MG/ML, 2ML IVPush PRN (08:44)
[2019-06-14] MEDS: ACYCLOVIR 400 MG TABLET PO SCH (08:45)
[2019-06-14] MEDS: FUROSEMIDE 40 MG TABLET PO SCH ×2 (08:46→17:38)
[2019-06-14] MEDS: SODIUM CHLORIDE FLUSH 10ML SYR IVF SCH ×2 (08:48→22:26)
[2019-06-14] MEDS: BUDESONIDE 0.5 MG/2 ML INHA NPPB SCH ×2 (09:00→19:08)
[2019-06-14 09:40] VITALS: BP 107/69
[2019-06-14] MEDS ORDERED: SODIUM CHLORIDE 0.9% 1,000 ML IV SCH (11:52)
[2019-06-14] MEDS ORDERED: CEFAZOLIN PMX 1GM/50ML 50 ML IVPB ONE (13:00)
[2019-06-14] MEDS ORDERED: FENTANYL PF 100 MCG/2ML ONE (13:45)
[2019-06-14] MEDS ORDERED: MIDAZOLAM 1 MG/ML, 5ML ONE (13:45)
[2019-06-14] MEDS ORDERED: LIDOCAINE 2%, 20ML ONE (13:46)
[2019-06-14] MEDS ORDERED: CEFAZOLIN 1,000 MG ONE (13:46)
[2019-06-14] MEDS ORDERED: CEFAZOLIN PMX 1GM/50ML 0 ML ONE (13:46)
[2019-06-14 16:22] VITALS: BP 125/60
[2019-06-14] MEDS: NICOTINE 7 MG/24 HR PATCH.TD24 TD SCH (17:11)
[2019-06-14] MEDS: OXYcodone IR 5MG TABLET PO PRN ×2 (17:59→22:29)
[2019-06-14] MEDS ORDERED: FUROSEMIDE 40 MG/4 ML IV ONE (18:00)
[2019-06-14 22:22] VITALS: BP 118/75
[2019-06-14] MEDS: TEMAZEPAM 15 MG CAPSULE PO PRN (22:27)
[2019-06-15] MEDS: METOPROLOL TARTRATE 25 MG TABLET PO SCH ×3 (01:00→17:24)
[2019-06-15] MEDS ORDERED: HEPARIN 5,000 UNITS/ML, 1ML IV PRN ×2 (04:00→15:30)
[2019-06-15] MEDS ORDERED: HEPARIN 25,000 UNITS/250ML PMX 250 ML IV PRN ×4 (04:00→20:00)
[2019-06-15 04:07] VITALS: BP 113/75
[2019-06-15] MEDS: LIDODERM 5% PATCH TD SCH (05:00)
[2019-06-15 05:13] LABS: ANION GAP 6 mmol/L (5-15); CALCIUM 8.7 mg/dL (8.5-10.1); CHLORIDE 96 mmol/L (98-107); MEAN CORPUSCULAR HEMOGLOBIN 27.1 pg (27.0-34.8); MEAN CORPUSCULAR HGB CONC 30.5 g/dL (32.4-35.8); MEAN CORPUSCULAR VOLUME 88.8 fL (80-100); MEAN PLATELET VOLUME 7.2 fL (7.4-10.4); PLATELET COUNT 291 x10^3/uL (130-400); RED BLOOD COUNT 3.22 x10^6/uL (3.82-5.3)
[2019-06-15 05:15] LABS: CREATININE 0.85 mg/dL (0.55-1.02)
[2019-06-15 05:42] LABS: BASOPHILS # (AUTO) 0.26 x10^3/uL (0-0.1); BASOPHILS % (AUTO) 2 % (0-1); EOSINOPHILS # (AUTO) 0.11 x10^3/uL (0-0.4); EOSINOPHILS % (AUTO) 1 % (1-7); LYMPHOCYTES # (AUTO) 2.42 x10^3/uL (1-3.4); LYMPHOCYTES % (AUTO) 20 % (22-44); MD SCAN; MONOCYTES # (AUTO) 0.56 x10^3/uL (0.2-0.8); MONOCYTES % (AUTO) 5 % (2-9); NEUTROPHILS # (AUTO) 8.59 x10^3/uL (1.8-6.8); NEUTROPHILS % (AUTO) 72 % (42-75); RED CELL DISTRIBUTION WIDTH 21.4 % (9.6-15.2)
[2019-06-15] MEDS: PANTOPROZOLE 40MG TABLET PO SCH ×3 (06:00→17:23)
[2019-06-15 07:02] VITALS: BP 105/71
[2019-06-15] MEDS: INSULIN LISPRO 100 UNITS/ML, PEN SQ-INSULIN SCH ×4 (07:30→20:59)
[2019-06-15] MEDS: ALBUTEROL/IPRATROPIUM 2.5MG/0.5MG, 3 ML NPPB SCH ×4 (07:45→20:00)
[2019-06-15 09:04] VITALS: BP 105/71
[2019-06-15] MEDS: FUROSEMIDE 40 MG TABLET PO SCH ×2 (09:15→17:23)
[2019-06-15] MEDS: ACYCLOVIR 400 MG TABLET PO SCH (09:15)
[2019-06-15] MEDS: INSULIN GLARGINE 100 UNITS/ML, PEN SQ-INSULIN SCH (09:18)
[2019-06-15] MEDS: BUDESONIDE 0.5 MG/2 ML INHA NPPB SCH ×2 (09:37→21:00)
[2019-06-15] MEDS: SODIUM CHLORIDE FLUSH 10ML SYR IVF SCH ×3 (10:35→21:00)
[2019-06-15] MEDS: OXYcodone IR 5MG TABLET PO PRN ×2 (10:58→21:00)
[2019-06-15] MEDS ORDERED: MIDAZOLAM 1 MG/ML, 2ML ONE (13:01)
[2019-06-15] MEDS ORDERED: CEFAZOLIN PMX 1GM/50ML 50 ML ONE ×2 (13:01→13:16)
[2019-06-15] MEDS ORDERED: LIDOCAINE 1%, 20ML ONE (13:01)
[2019-06-15] MEDS ORDERED: FENTANYL PF 100 MCG/2ML ONE ×2 (13:01→13:16)
[2019-06-15] MEDS ORDERED: CEFAZOLIN 1,000 MG ONE ×2 (13:01→13:16)
[2019-06-15] MEDS ORDERED: LIDOCAINE 2%, 20ML ONE (13:16)
[2019-06-15] MEDS ORDERED: MIDAZOLAM 1 MG/ML, 5ML ONE (13:16)
[2019-06-15] MEDS ORDERED: HOLD MEDICATION MC PRN ×2 (15:00→15:44)
[2019-06-15 15:15] VITALS: BP 112/73
[2019-06-15] MEDS ORDERED: HEPARIN 5,000 UNITS/ML, 1ML IV ONE (15:30)
[2019-06-15] MEDS: NICOTINE 7 MG/24 HR PATCH.TD24 TD SCH (17:23)
[2019-06-15] MEDS: SOTALOL 120MG TABLET PO SCH (17:23)
[2019-06-15 20:10] VITALS: BP 99/63
[2019-06-15] MEDS: CEFAZOLIN PMX 1GM/50ML 50 ML IVPB SCH (22:03)
[2019-06-15] MEDS: HEPARIN 5,000 UNITS/ML, 1ML IV PRN ×2 (22:03→22:10)
[2019-06-16] MEDS: METOPROLOL TARTRATE 25 MG TABLET PO SCH ×3 (01:44→20:52)
[2019-06-16 01:45] VITALS: BP 135/84
[2019-06-16] MEDS: LIDODERM 5% PATCH TD SCH (05:00)
[2019-06-16 05:38] LABS: MEAN CORPUSCULAR HEMOGLOBIN 27.5 pg (27.0-34.8); MEAN CORPUSCULAR HGB CONC 30.8 g/dL (32.4-35.8); MEAN CORPUSCULAR VOLUME 89.3 fL (80-100); MEAN PLATELET VOLUME 6.7 fL (7.4-10.4); PLATELET COUNT 257 x10^3/uL (130-400); RED BLOOD COUNT 3.09 x10^6/uL (3.82-5.3); RED CELL DISTRIBUTION WIDTH 22.2 % (9.6-15.2)
[2019-06-16 05:44] LABS: ANION GAP 7 mmol/L (5-15); CALCIUM 8.1 mg/dL (8.5-10.1); CHLORIDE 94 mmol/L (98-107); CREATININE 0.96 mg/dL (0.55-1.02)
[2019-06-16] MEDS: CEFAZOLIN PMX 1GM/50ML 50 ML IVPB SCH (05:52)
[2019-06-16] MEDS: PANTOPROZOLE 40MG TABLET PO SCH ×2 (05:52→17:03)
[2019-06-16] MEDS: SOTALOL 120MG TABLET PO SCH ×2 (05:52→17:03)
[2019-06-16 06:08] LABS: BASOPHILS # (AUTO) 0.13 x10^3/uL (0-0.1); BASOPHILS % (AUTO) 1 % (0-1); EOSINOPHILS # (AUTO) 0.04 x10^3/uL (0-0.4); EOSINOPHILS % (AUTO) 0 % (1-7); LYMPHOCYTES # (AUTO) 1.83 x10^3/uL (1-3.4); LYMPHOCYTES % (AUTO) 19 % (22-44); MD SCAN; MONOCYTES # (AUTO) 0.76 x10^3/uL (0.2-0.8); MONOCYTES % (AUTO) 8 % (2-9); NEUTROPHILS # (AUTO) 7.13 x10^3/uL (1.8-6.8); NEUTROPHILS % (AUTO) 72 % (42-75)
[2019-06-16] MEDS: ALBUTEROL/IPRATROPIUM 2.5MG/0.5MG, 3 ML NPPB SCH ×3 (07:15→19:08)
[2019-06-16 07:35] VITALS: BP 92/54
[2019-06-16] MEDS: INSULIN LISPRO 100 UNITS/ML, PEN SQ-INSULIN SCH ×4 (07:59→21:15)
[2019-06-16] MEDS: BUDESONIDE 0.5 MG/2 ML INHA NPPB SCH ×2 (09:15→19:08)
[2019-06-16] MEDS: INSULIN GLARGINE 100 UNITS/ML, PEN SQ-INSULIN SCH (09:48)
[2019-06-16] MEDS: SODIUM CHLORIDE FLUSH 10ML SYR IVF SCH ×4 (09:54→20:52)
[2019-06-16] MEDS: ACYCLOVIR 400 MG TABLET PO SCH (09:54)
[2019-06-16] MEDS: FUROSEMIDE 40 MG TABLET PO SCH ×2 (09:57→17:03)
[2019-06-16] MEDS: RIVAROXABAN 15 MG TABLET PO SCH ×2 (11:34→17:03)
[2019-06-16] MEDS: POLYETHYLENE GLYCOL 17 GM PACKET PO PRN (11:34)
[2019-06-16 14:50] VITALS: BP 118/68
[2019-06-16] MEDS: OXYcodone IR 5MG TABLET PO PRN ×2 (14:53→20:53)
[2019-06-16] MEDS: NICOTINE 7 MG/24 HR PATCH.TD24 TD SCH (17:04)
[2019-06-16 19:45] VITALS: BP 132/72
[2019-06-17] VITALS (11 sets, daily range): BP systolic 78–150; BP diastolic 40–90
[2019-06-17] MEDS: OXYcodone IR 5MG TABLET PO PRN ×2 (00:32→14:31)
[2019-06-17] MEDS: TEMAZEPAM 15 MG CAPSULE PO PRN (00:38)
[2019-06-17 04:22] LABS: MEAN CORPUSCULAR HEMOGLOBIN 27.7 pg (27.0-34.8); MEAN CORPUSCULAR HGB CONC 31.4 g/dL (32.4-35.8); MEAN CORPUSCULAR VOLUME 88.3 fL (80-100); MEAN PLATELET VOLUME 7.4 fL (7.4-10.4); PLATELET COUNT 208 x10^3/uL (130-400); RED BLOOD COUNT 3.16 x10^6/uL (3.82-5.3); RED CELL DISTRIBUTION WIDTH 22.2 % (9.6-15.2)
[2019-06-17 04:26] LABS: ANION GAP 5 mmol/L (5-15); CALCIUM 8.5 mg/dL (8.5-10.1); CHLORIDE 95 mmol/L (98-107); CREATININE 0.93 mg/dL (0.55-1.02)
[2019-06-17 04:49] LABS: MD YES
[2019-06-17 04:52] LABS: ANISOCYTOSIS 1+; LYMPH#(MANUAL) 1.04 x10^3/uL (1-3.4); LYMPHS% (MANUAL) 10 % (22-44); MONOS#(MANUAL) 0.62 x10^3/uL (0.3-2.7); MONOS% (MANUAL) 6 % (2-9); NRBC % (MANUAL) 1 % (0-1); POLYCHROMASIA 1+; SEG#(MANUAL) 8.74 x10^3/uL (1.8-6.8); SEGS% (MANUAL) 84 % (42-75)
[2019-06-17 04:53] LABS: <PLATELET ESTIMATE> ADEQUATE; <PLT MORPHOLOGY> NORMAL PLT MORPH; HYPOCHROMIA 1+
[2019-06-17] MEDS: SOTALOL 120MG TABLET PO SCH ×2 (06:17→17:26)
[2019-06-17] MEDS: PANTOPROZOLE 40MG TABLET PO SCH ×2 (06:18→17:26)
[2019-06-17] MEDS: LIDODERM 5% PATCH TD SCH (06:18)
[2019-06-17] MEDS: ALBUTEROL/IPRATROPIUM 2.5MG/0.5MG, 3 ML NPPB SCH ×4 (06:54→18:34)
[2019-06-17] MEDS: BUDESONIDE 0.5 MG/2 ML INHA NPPB SCH ×2 (06:54→18:34)
[2019-06-17] MEDS: INSULIN LISPRO 100 UNITS/ML, PEN SQ-INSULIN SCH ×4 (07:27→22:08)
[2019-06-17] MEDS: SENNA/DOCUSATE TABLET PO SCH (09:48)
[2019-06-17] MEDS: METOPROLOL TARTRATE 25 MG TABLET PO SCH (09:49)
[2019-06-17] MEDS: RIVAROXABAN 15 MG TABLET PO SCH ×2 (09:49→17:26)
[2019-06-17] MEDS: ACYCLOVIR 400 MG TABLET PO SCH (09:49)
[2019-06-17] MEDS: FUROSEMIDE 40 MG TABLET PO SCH (09:50)
[2019-06-17] MEDS: INSULIN GLARGINE 100 UNITS/ML, PEN SQ-INSULIN SCH (09:50)
[2019-06-17] MEDS: SODIUM CHLORIDE FLUSH 10ML SYR IVF SCH ×4 (09:51→22:08)
[2019-06-17] MEDS ORDERED: LISINOPRIL 20 MG TABLET PO SCH (11:30)
[2019-06-17] MEDS: NICOTINE 7 MG/24 HR PATCH.TD24 TD SCH (17:14)
[2019-06-17] MEDS: ACETAMINOPHEN 325 MG TABLET PO PRN (17:27)
[2019-06-17] MEDS ORDERED: DIPHENHYDRAMINE 25 MG CAPSULE PO PRN (18:00)
[2019-06-17] MEDS ORDERED: SODIUM CHLORIDE 0.9%, 250ML IVBOLUS ONE (19:00)
[2019-06-18 00:18] VITALS: BP 90/56
[2019-06-18 02:51] VITALS: BP 83/47
[2019-06-18 03:27] VITALS: BP 95/59
[2019-06-18] MEDS: LIDODERM 5% PATCH TD SCH (05:25)
[2019-06-18] MEDS: SOTALOL 120MG TABLET PO SCH ×2 (05:28→16:36)
[2019-06-18 05:54] LABS: ALANINE AMINOTRANSFERASE 17 U/L (12-78); ALBUMIN 2.4 g/dL (3.4-5.0); ANION GAP 5 mmol/L (5-15); CALCIUM 8.8 mg/dL (8.5-10.1); CHLORIDE 96 mmol/L (98-107); CREATININE 1.64 mg/dL (0.55-1.02)
[2019-06-18 05:55] LABS: MEAN CORPUSCULAR HEMOGLOBIN 27.4 pg (27.0-34.8); MEAN CORPUSCULAR VOLUME 88.3 fL (80-100); MEAN PLATELET VOLUME 6.8 fL (7.4-10.4); PLATELET COUNT 263 x10^3/uL (130-400); RED BLOOD COUNT 2.99 x10^6/uL (3.82-5.3); RED CELL DISTRIBUTION WIDTH 23.1 % (9.6-15.2)
[2019-06-18 05:56] LABS: ALKALINE PHOSPHATASE 69 U/L (45-117); BILIRUBIN,TOTAL 0.8 mg/dL (0.2-1.0); TOTAL PROTEIN 6.2 g/dL (6.4-8.2)
[2019-06-18 06:10] LABS: MD YES
[2019-06-18] MEDS: PANTOPROZOLE 40MG TABLET PO SCH ×2 (06:11→16:36)
[2019-06-18 06:12] LABS: BAND#(MANUAL) 0.18 x10^3/uL; BANDS%(MANUAL) 2 % (0-7); LYMPH#(MANUAL) 2.07 x10^3/uL (1-3.4); LYMPHS% (MANUAL) 23 % (22-44); METAMYELOCYTES# (MANUAL) 0.09 x10^3/uL (0-0); METAMYELOCYTES% (MANUAL) 1 % (0-1); MONOS#(MANUAL) 0.18 x10^3/uL (0.3-2.7); MONOS% (MANUAL) 2 % (2-9); NRBC % (MANUAL) 2 % (0-1); SEG#(MANUAL) 6.48 x10^3/uL (1.8-6.8); SEGS% (MANUAL) 72 % (42-75)
[2019-06-18 06:13] LABS: ANISOCYTOSIS 2+; HYPOCHROMIA 1+; POLYCHROMASIA 1+
[2019-06-18 06:14] LABS: <PLATELET ESTIMATE> ADEQUATE; <PLT MORPHOLOGY> NORMAL PLT MORPH; OVALOCYTES 1+
[2019-06-18 06:30] VITALS: BP 110/67
[2019-06-18] MEDS: ALBUTEROL/IPRATROPIUM 2.5MG/0.5MG, 3 ML NPPB SCH ×4 (07:00→20:00)
[2019-06-18] MEDS: INSULIN LISPRO 100 UNITS/ML, PEN SQ-INSULIN SCH ×4 (07:00→21:26)
[2019-06-18] MEDS: BUDESONIDE 0.5 MG/2 ML INHA NPPB SCH ×2 (07:09→21:00)
[2019-06-18] MEDS: INSULIN GLARGINE 100 UNITS/ML, PEN SQ-INSULIN SCH (07:30)
[2019-06-18 09:00] VITALS: BP 97/61
[2019-06-18] MEDS ORDERED: FUROSEMIDE 40 MG/4 ML IV ONE (09:30)
[2019-06-18] MEDS: RIVAROXABAN 15 MG TABLET PO SCH ×2 (10:09→16:36)
[2019-06-18] MEDS: SENNA/DOCUSATE TABLET PO SCH (10:10)
[2019-06-18] MEDS: SODIUM CHLORIDE FLUSH 10ML SYR IVF SCH ×4 (10:11→21:20)
[2019-06-18] MEDS: ACYCLOVIR 400 MG TABLET PO SCH (10:12)
[2019-06-18] MEDS: methylPREDNISolone SOD SUCC 40 MG/ML IV SCH ×2 (12:53→16:36)
[2019-06-18] MEDS: FUROSEMIDE 100 MG in SODIUM CHLORIDE 0.9% 90 ML IV PRN (12:54)
[2019-06-18] MEDS: KSCALE TO 4.5 IV SCH ×2 (13:00→19:00)
[2019-06-18 13:13] LABS: CULTURE INDICATED? YES; MICROSCOPIC INDICATED
[2019-06-18] MEDS ORDERED: ALBUMIN HUMAN 25% 50 ML IV ONE (13:30)
[2019-06-18] MEDS ORDERED: NOREPINEPHRINE 8 MG in SODIUM CHLORIDE 0.9% 242 ML IV PRN (13:30)
[2019-06-18] MEDS: NICOTINE 7 MG/24 HR PATCH.TD24 TD SCH (16:37)
[2019-06-18] MEDS ORDERED: DIPHENHYDRAMINE 50 MG/ML, 1ML IVPush ONE (21:00)
[2019-06-19] MEDS: methylPREDNISolone SOD SUCC 40 MG/ML IV SCH ×3 (00:41→11:39)
[2019-06-19] MEDS: KSCALE TO 4.5 IV SCH ×4 (01:00→19:00)
[2019-06-19] MEDS ORDERED: VANCOMYCIN 2,000 MG in SODIUM CHLORIDE 0.9% 500 ML IV SCH (04:00)
[2019-06-19 04:30] VITALS: BP 106/41
[2019-06-19 04:32] LABS: MEAN CORPUSCULAR HEMOGLOBIN 27.1 pg (27.0-34.8); MEAN CORPUSCULAR HGB CONC 30.7 g/dL (32.4-35.8); MEAN PLATELET VOLUME 6.9 fL (7.4-10.4); PLATELET COUNT 297 x10^3/uL (130-400); RED BLOOD COUNT 2.81 x10^6/uL (3.82-5.3); RED CELL DISTRIBUTION WIDTH 22.4 % (9.6-15.2)
[2019-06-19 04:39] LABS: ALANINE AMINOTRANSFERASE 20 U/L (12-78); ALBUMIN 2.6 g/dL (3.4-5.0); ANION GAP 3 mmol/L (5-15); CALCIUM 8.6 mg/dL (8.5-10.1); CHLORIDE 97 mmol/L (98-107); CREATININE 1.13 mg/dL (0.55-1.02)
[2019-06-19 04:42] LABS: ALKALINE PHOSPHATASE 64 U/L (45-117); BILIRUBIN,TOTAL 0.5 mg/dL (0.2-1.0); TOTAL PROTEIN 6.3 g/dL (6.4-8.2)
[2019-06-19 04:51] LABS: MD YES
[2019-06-19 04:53] LABS: ANISOCYTOSIS 2+; HYPOCHROMIA 1+; LYMPH#(MANUAL) 0.55 x10^3/uL (1-3.4); LYMPHS% (MANUAL) 7 % (22-44); METAMYELOCYTES# (MANUAL) 0.16 x10^3/uL (0-0); METAMYELOCYTES% (MANUAL) 2 % (0-1); MONOS#(MANUAL) 0.32 x10^3/uL (0.3-2.7); MONOS% (MANUAL) 4 % (2-9); NRBC % (MANUAL) 1 % (0-1); POLYCHROMASIA 1+; SEG#(MANUAL) 6.87 x10^3/uL (1.8-6.8); SEGS% (MANUAL) 87 % (42-75)
[2019-06-19 04:54] LABS: <PLATELET ESTIMATE> ADEQUATE; <PLT MORPHOLOGY> NORMAL PLT MORPH; OVALOCYTES 1+
[2019-06-19] MEDS: LIDODERM 5% PATCH TD SCH (05:00)
[2019-06-19] MEDS: SOTALOL 120MG TABLET PO SCH ×2 (05:26→16:49)
[2019-06-19] MEDS: PANTOPROZOLE 40MG TABLET PO SCH ×2 (06:07→16:49)
[2019-06-19] MEDS: ALBUTEROL/IPRATROPIUM 2.5MG/0.5MG, 3 ML NPPB SCH ×4 (08:00→20:00)
[2019-06-19] MEDS: BUDESONIDE 0.5 MG/2 ML INHA NPPB SCH ×2 (08:00→20:21)
[2019-06-19] MEDS: ACYCLOVIR 400 MG TABLET PO SCH (09:15)
[2019-06-19] MEDS: INSULIN LISPRO 100 UNITS/ML, PEN SQ-INSULIN SCH ×4 (09:15→21:03)
[2019-06-19] MEDS: INSULIN GLARGINE 100 UNITS/ML, PEN SQ-INSULIN SCH (09:15)
[2019-06-19] MEDS: SENNA/DOCUSATE TABLET PO SCH (09:16)
[2019-06-19] MEDS: SODIUM CHLORIDE FLUSH 10ML SYR IVF SCH ×3 (09:16→21:03)
[2019-06-19] MEDS: RIVAROXABAN 15 MG TABLET PO SCH ×2 (09:16→16:48)
[2019-06-19] MEDS ORDERED: VANCOMYCIN PER PHARMACY MC PRN (09:30)
[2019-06-19] MEDS ORDERED: PHARMACOKINETIC MONITORING MC PRN (09:30)
[2019-06-19] MEDS ORDERED: PHARMACOKINETIC CONSULTATION MC ONE (09:30)
[2019-06-19] MEDS: FUROSEMIDE 100 MG in SODIUM CHLORIDE 0.9% 90 ML IV PRN (09:49)
[2019-06-19] MEDS ORDERED: VANCOMYCIN 2,000 MG in SODIUM CHLORIDE 0.9% 500 ML IV ONE (10:00)
[2019-06-19] MEDS: PIPERACILLIN/TAZO/PMX 3.375GM 50 ML IV SCH ×3 (11:35→21:04)
[2019-06-19] MEDS: NICOTINE 7 MG/24 HR PATCH.TD24 TD SCH (12:24)
[2019-06-19] MEDS: methylPREDNISolone SOD SUCC 125 MG/2 ML IV SCH (16:48)
[2019-06-19] MEDS: OXYcodone IR 5MG TABLET PO PRN ×2 (19:30→21:04)
[2019-06-19] MEDS: TEMAZEPAM 15 MG CAPSULE PO PRN (21:03)
[2019-06-20] MEDS: methylPREDNISolone SOD SUCC 125 MG/2 ML IV SCH ×3 (00:04→11:45)
[2019-06-20] MEDS: KSCALE TO 4.5 IV SCH (01:00)
[2019-06-20] MEDS: PIPERACILLIN/TAZO/PMX 3.375GM 50 ML IV SCH ×4 (03:47→22:20)
[2019-06-20] MEDS ORDERED: VANCOMYCIN 2,000 MG in SODIUM CHLORIDE 0.9% 500 ML IV SCH (04:00)
[2019-06-20] MEDS: OXYcodone IR 5MG TABLET PO PRN (04:31)
[2019-06-20] MEDS: LIDODERM 5% PATCH TD SCH (05:00)
[2019-06-20 05:14] VITALS: BP 132/51
[2019-06-20] MEDS: POLYETHYLENE GLYCOL 17 GM PACKET PO PRN (05:54)
[2019-06-20] MEDS: SOTALOL 120MG TABLET PO SCH ×2 (05:54→16:53)
[2019-06-20] MEDS: PANTOPROZOLE 40MG TABLET PO SCH ×2 (05:54→17:00)
[2019-06-20 06:17] LABS: MEAN CORPUSCULAR HGB CONC 30.4 g/dL (32.4-35.8); MEAN CORPUSCULAR VOLUME 88.8 fL (80-100); MEAN PLATELET VOLUME 6.7 fL (7.4-10.4); PLATELET COUNT 248 x10^3/uL (130-400); RED BLOOD COUNT 2.58 x10^6/uL (3.82-5.3); RED CELL DISTRIBUTION WIDTH 22.3 % (9.6-15.2)
[2019-06-20 06:36] LABS: MD YES
[2019-06-20 06:38] LABS: ANISOCYTOSIS 2+; BAND#(MANUAL) 0.05 x10^3/uL; BANDS%(MANUAL) 1 % (0-7); LYMPH#(MANUAL) 0.45 x10^3/uL (1-3.4); LYMPHS% (MANUAL) 9 % (22-44); MONOS% (MANUAL) 2 % (2-9); NRBC % (MANUAL) 1 % (0-1); SEGS% (MANUAL) 88 % (42-75)
[2019-06-20 06:39] LABS: HYPOCHROMIA 2+
[2019-06-20 06:40] LABS: BASOPHILLIC STIPPLING 1+; OVALOCYTES 1+; POLYCHROMASIA 1+; STOMATOCYTES 1+
[2019-06-20 06:43] LABS: <PLATELET ESTIMATE> ADEQUATE; <PLT MORPHOLOGY> NORMAL PLT MORPH; MICROCYTOSIS 1+
[2019-06-20 07:03] LABS: CALCIUM 8.5 mg/dL (8.5-10.1); CREATININE 0.89 mg/dL (0.55-1.02)
[2019-06-20 07:27] LABS: ANION GAP 6 mmol/L (5-15); CHLORIDE 94 mmol/L (98-107)
[2019-06-20] MEDS: ALBUTEROL/IPRATROPIUM 2.5MG/0.5MG, 3 ML NPPB SCH ×4 (08:03→18:20)
[2019-06-20] MEDS: BUDESONIDE 0.5 MG/2 ML INHA NPPB SCH ×2 (08:03→18:20)
[2019-06-20] MEDS: RIVAROXABAN 15 MG TABLET PO SCH ×2 (08:50→16:54)
[2019-06-20] MEDS: POTASSIUM CHLORIDE 20 MEQ TAB.ER.PRT PO SCH ×2 (08:50→20:48)
[2019-06-20] MEDS: SODIUM CHLORIDE FLUSH 10ML SYR IVF SCH ×2 (08:50→20:48)
[2019-06-20] MEDS: ACYCLOVIR 400 MG TABLET PO SCH (08:50)
[2019-06-20] MEDS: FUROSEMIDE 40 MG/4 ML IV SCH ×2 (08:51→20:47)
[2019-06-20] MEDS: INSULIN LISPRO 100 UNITS/ML, PEN SQ-INSULIN SCH ×4 (08:56→20:55)
[2019-06-20] MEDS: INSULIN GLARGINE 100 UNITS/ML, PEN SQ-INSULIN SCH (08:57)
[2019-06-20] MEDS ORDERED: NOREPINEPHRINE 8 MG in SODIUM CHLORIDE 0.9% 242 ML IV PRN (09:00)
[2019-06-20] MEDS ORDERED: DIPHENHYDRAMINE 25 MG CAPSULE PO ONE (12:00)
[2019-06-20] MEDS: NICOTINE 7 MG/24 HR PATCH.TD24 TD SCH (16:48)
[2019-06-20] MEDS: methylPREDNISolone SOD SUCC 40 MG/ML IV SCH ×2 (16:53→23:59)
[2019-06-20] MEDS: SENNA/DOCUSATE TABLET PO SCH (20:48)
[2019-06-20] MEDS: TEMAZEPAM 15 MG CAPSULE PO PRN (22:22)
[2019-06-21] MEDS: ACETAMINOPHEN 325 MG TABLET PO PRN ×2 (00:14→15:07)
[2019-06-21] MEDS: PIPERACILLIN/TAZO/PMX 3.375GM 50 ML IV SCH ×4 (03:50→22:42)
[2019-06-21 04:48] LABS: CALCIUM 8.7 mg/dL (8.5-10.1); CREATININE 1.01 mg/dL (0.55-1.02)
[2019-06-21 05:00] LABS: ANION GAP 5 mmol/L (5-15); CHLORIDE 92 mmol/L (98-107)
[2019-06-21] MEDS: LIDODERM 5% PATCH TD SCH (05:00)
[2019-06-21] MEDS: SOTALOL 120MG TABLET PO SCH ×2 (05:28→17:33)
[2019-06-21] MEDS: PANTOPROZOLE 40MG TABLET PO SCH ×2 (05:28→15:07)
[2019-06-21] MEDS: methylPREDNISolone SOD SUCC 40 MG/ML IV SCH ×3 (05:31→21:05)
[2019-06-21 05:33] VITALS: BP 133/63
[2019-06-21] MEDS: BUDESONIDE 0.5 MG/2 ML INHA NPPB SCH ×2 (07:15→19:45)
[2019-06-21] MEDS: ALBUTEROL/IPRATROPIUM 2.5MG/0.5MG, 3 ML NPPB SCH ×4 (07:15→19:45)
[2019-06-21] MEDS: FUROSEMIDE 40 MG/4 ML IV SCH ×2 (08:34→21:04)
[2019-06-21] MEDS: ACYCLOVIR 400 MG TABLET PO SCH (08:34)
[2019-06-21] MEDS: METOLAZONE 5 MG TABLET PO SCH ×2 (08:34→17:33)
[2019-06-21] MEDS: RIVAROXABAN 15 MG TABLET PO SCH ×2 (08:35→17:32)
[2019-06-21] MEDS: INSULIN LISPRO 100 UNITS/ML, PEN SQ-INSULIN SCH ×4 (08:38→21:06)
[2019-06-21] MEDS: INSULIN GLARGINE 100 UNITS/ML, PEN SQ-INSULIN SCH (08:39)
[2019-06-21] MEDS: SODIUM CHLORIDE FLUSH 10ML SYR IVF SCH ×2 (08:39→21:05)
[2019-06-21] MEDS: NICOTINE 7 MG/24 HR PATCH.TD24 TD SCH (14:37)
[2019-06-21] MEDS: SENNA/DOCUSATE TABLET PO SCH (21:00)
[2019-06-21] MEDS: TEMAZEPAM 15 MG CAPSULE PO PRN ×2 (21:06→22:45)
[2019-06-21] MEDS: DIPHENHYDRAMINE 25 MG CAPSULE PO PRN (22:44)
[2019-06-22] MEDS: PIPERACILLIN/TAZO/PMX 3.375GM 50 ML IV SCH ×4 (04:02→21:00)
[2019-06-22] MEDS: methylPREDNISolone SOD SUCC 40 MG/ML IV SCH (04:02)
[2019-06-22 04:28] LABS: BASOPHILS # (AUTO) 0.02 x10^3/uL (0-0.1); BASOPHILS % (AUTO) 0 % (0-1); EOSINOPHILS # (AUTO) 0.02 x10^3/uL (0-0.4); EOSINOPHILS % (AUTO) 0 % (1-7); LYMPHOCYTES # (AUTO) 0.68 x10^3/uL (1-3.4); LYMPHOCYTES % (AUTO) 10 % (22-44); MD NO; MEAN CORPUSCULAR VOLUME 87.2 fL (80-100); MONOCYTES # (AUTO) 0.34 x10^3/uL (0.2-0.8); MONOCYTES % (AUTO) 5 % (2-9); NEUTROPHILS % (AUTO) 85 % (42-75); PLATELET COUNT 256 x10^3/uL (130-400); RED BLOOD COUNT 2.87 x10^6/uL (3.82-5.3); RED CELL DISTRIBUTION WIDTH 20.9 % (9.6-15.2)
[2019-06-22 04:40] LABS: CALCIUM 9.1 mg/dL (8.5-10.1); CHLORIDE 84 mmol/L (98-107)
[2019-06-22 04:41] LABS: CREATININE 0.97 mg/dL (0.55-1.02)
[2019-06-22 04:57] LABS: ANION GAP 3 mmol/L (5-15)
[2019-06-22] MEDS: LIDODERM 5% PATCH TD SCH (05:00)
[2019-06-22] MEDS: SOTALOL 120MG TABLET PO SCH ×2 (06:05→16:48)
[2019-06-22] MEDS: PANTOPROZOLE 40MG TABLET PO SCH ×2 (06:05→16:46)
[2019-06-22] MEDS: ALBUTEROL/IPRATROPIUM 2.5MG/0.5MG, 3 ML NPPB SCH ×4 (07:15→18:45)
[2019-06-22] MEDS: BUDESONIDE 0.5 MG/2 ML INHA NPPB SCH ×2 (07:15→18:45)
[2019-06-22] MEDS: OXYcodone IR 5MG TABLET PO PRN ×2 (08:49→21:05)
[2019-06-22] MEDS: AcetaZOLAMIDE INJ 500 MG IVPush SCH ×2 (08:49→21:01)
[2019-06-22] MEDS: ACYCLOVIR 400 MG TABLET PO SCH (08:49)
[2019-06-22] MEDS: SENNA/DOCUSATE TABLET PO SCH (08:49)
[2019-06-22] MEDS: METOLAZONE 5 MG TABLET PO SCH ×2 (08:49→16:49)
[2019-06-22] MEDS: SODIUM CHLORIDE FLUSH 10ML SYR IVF SCH (08:50)
[2019-06-22] MEDS: RIVAROXABAN 15 MG TABLET PO SCH ×2 (08:50→16:49)
[2019-06-22] MEDS: POTASSIUM CHLORIDE 20 MEQ TAB.ER.PRT PO SCH ×2 (08:50→16:49)
[2019-06-22] MEDS: INSULIN LISPRO 100 UNITS/ML, PEN SQ-INSULIN SCH ×4 (08:54→20:59)
[2019-06-22] MEDS: INSULIN GLARGINE 100 UNITS/ML, PEN SQ-INSULIN SCH (08:55)
[2019-06-22] MEDS: NICOTINE 7 MG/24 HR PATCH.TD24 TD SCH (16:50)
[2019-06-22] MEDS: TEMAZEPAM 15 MG CAPSULE PO PRN (21:04)
[2019-06-22] MEDS: DIPHENHYDRAMINE 25 MG CAPSULE PO PRN (21:05)
[2019-06-23] MEDS: SODIUM CHLORIDE FLUSH 10ML SYR IVF SCH ×3 (03:00→20:01)
[2019-06-23] MEDS: PIPERACILLIN/TAZO/PMX 3.375GM 50 ML IV SCH ×4 (03:00→21:01)
[2019-06-23 04:34] LABS: ANION GAP 5 mmol/L (5-15); CALCIUM 8.9 mg/dL (8.5-10.1); CHLORIDE 93 mmol/L (98-107)
[2019-06-23 04:36] LABS: CREATININE 0.82 mg/dL (0.55-1.02)
[2019-06-23] MEDS: LIDODERM 5% PATCH TD SCH (05:00)
[2019-06-23] MEDS: SOTALOL 120MG TABLET PO SCH ×2 (05:31→20:01)
[2019-06-23] MEDS: PANTOPROZOLE 40MG TABLET PO SCH ×2 (05:32→16:15)
[2019-06-23] MEDS: BUDESONIDE 0.5 MG/2 ML INHA NPPB SCH ×2 (06:20→19:09)
[2019-06-23] MEDS: ALBUTEROL/IPRATROPIUM 2.5MG/0.5MG, 3 ML NPPB SCH ×4 (06:20→19:09)
[2019-06-23] MEDS: INSULIN LISPRO 100 UNITS/ML, PEN SQ-INSULIN SCH ×4 (06:36→21:00)
[2019-06-23] MEDS: SENNA/DOCUSATE TABLET PO SCH (08:49)
[2019-06-23] MEDS: POTASSIUM CHLORIDE 20 MEQ TAB.ER.PRT PO SCH ×2 (08:50→16:15)
[2019-06-23] MEDS: RIVAROXABAN 15 MG TABLET PO SCH (08:50)
[2019-06-23] MEDS: METOLAZONE 5 MG TABLET PO SCH ×2 (08:50→16:15)
[2019-06-23] MEDS: AcetaZOLAMIDE INJ 500 MG IVPush SCH ×2 (08:50→20:01)
[2019-06-23] MEDS: ACYCLOVIR 800 MG TABLET PO SCH (09:23)
[2019-06-23] MEDS: INSULIN GLARGINE 100 UNITS/ML, PEN SQ-INSULIN SCH (09:24)
[2019-06-23] MEDS ORDERED: RIVA20TA PO (11:50)
[2019-06-23] MEDS ORDERED: PRED20TA PO (11:50)
[2019-06-23] MEDS ORDERED: SOTA120T14 PO (11:50)
[2019-06-23] MEDS ORDERED: METO5TAB5 PO (11:50)
[2019-06-23] MEDS: NICOTINE 7 MG/24 HR PATCH.TD24 TD SCH (16:15)
[2019-06-23 19:52] VITALS: BP 110/60
[2019-06-23] MEDS: ACETAMINOPHEN 325 MG TABLET PO PRN (20:55)
[2019-06-24 02:37] VITALS: BP 119/61
[2019-06-24] MEDS: PIPERACILLIN/TAZO/PMX 3.375GM 50 ML IV SCH ×3 (04:04→16:45)
[2019-06-24] MEDS: LIDODERM 5% PATCH TD SCH (04:06)
[2019-06-24] MEDS: SOTALOL 120MG TABLET PO SCH (06:21)
[2019-06-24] MEDS: PANTOPROZOLE 40MG TABLET PO SCH ×2 (06:21→16:47)
[2019-06-24] MEDS: BUDESONIDE 0.5 MG/2 ML INHA NPPB SCH (06:45)
[2019-06-24] MEDS: ALBUTEROL/IPRATROPIUM 2.5MG/0.5MG, 3 ML NPPB SCH ×3 (06:45→15:02)
[2019-06-24] MEDS: INSULIN LISPRO 100 UNITS/ML, PEN SQ-INSULIN SCH ×2 (07:00→12:00)
[2019-06-24] MEDS ORDERED: INSULIN GLARGINE 100 UNITS/ML, PEN SQ-INSULIN SCH (07:30)
[2019-06-24] MEDS ORDERED: RIVAROXABAN 20 MG TABLET PO SCH (08:00)
[2019-06-24] MEDS: ACETAMINOPHEN 325 MG TABLET PO PRN (08:44)
[2019-06-24] MEDS ORDERED: POTASSIUM CHLORIDE 20 MEQ TAB.ER.PRT PO ONE ×2 (09:03→15:00)
[2019-06-24] MEDS: SENNA/DOCUSATE TABLET PO SCH (09:10)
[2019-06-24] MEDS: ACYCLOVIR 800 MG TABLET PO SCH (09:10)
[2019-06-24] MEDS: METOLAZONE 5 MG TABLET PO SCH (09:12)
[2019-06-24 09:45] LABS: ANION GAP 8 mmol/L (5-15); CALCIUM 8.3 mg/dL (8.5-10.1); CHLORIDE 97 mmol/L (98-107); CREATININE 0.92 mg/dL (0.55-1.02)
[2019-06-24] MEDS: INSULIN GLARGINE 100 UNITS/ML, PEN SQ-INSULIN SCH (10:04)
[2019-06-24] MEDS: SODIUM CHLORIDE FLUSH 10ML SYR IVF SCH (10:04)
[2019-06-24] MEDS ORDERED: POTASSIUM CHLORIDE 20 MEQ TAB.ER.PRT PO SCH (17:00)
[2019-07-07] MEDS ORDERED: RIVAROXABAN 20 MG TABLET PO SCH (08:00)
== END 2019-06-24 17:48 | DRG 242 ==
LOC: ED 12:02 → EDIP 12:16 → 4EST 16:20 → 5SO 06-04 17:41 → CCU 06-04 19:07 → 5SO 06-11 11:02 → CCU 06-18 12:18 → ICU 06-23 07:48
PROVIDERS: ADMIT Hospitalist; ATTEND Internal Medicine
PROC: 5A1945Z Respiratory Ventilation, 24-96 Consecutive Hours (ICD-10-PCS; 2019-06-06)
PROC: 0BH17EZ Insertion of Endotracheal Airway into Trachea, Via Natural or Artificial Opening (ICD-10-PCS; 2019-06-06)
PROC: 0JH606Z Insertion of Pacemaker, Dual Chamber into Chest Subcutaneous Tissue and Fascia, Open Approach (ICD-10-PCS; principal; 2019-06-15)
PROC: 02H63JZ Insertion of Pacemaker Lead into Right Atrium, Percutaneous Approach (ICD-10-PCS; 2019-06-15)
PROC: 02HK3JZ Insertion of Pacemaker Lead into Right Ventricle, Percutaneous Approach (ICD-10-PCS; 2019-06-15)
PROC: 02HV33Z Insertion of Infusion Device into Superior Vena Cava, Percutaneous Approach (ICD-10-PCS; 2019-06-18)
PROC: B548ZZA Ultrasonography of Superior Vena Cava, Guidance (ICD-10-PCS; 2019-06-18)
PROC: 0T9B70Z Drainage of Bladder with Drainage Device, Via Natural or Artificial Opening (ICD-10-PCS; 2019-06-18)
DX: I11.0 Hypertensive heart disease with heart failure (principal); J96.21 Acute and chronic respiratory failure with hypoxia; G93.41 Metabolic encephalopathy; I26.99 Other pulmonary embolism without acute cor pulmonale; J18.9 Pneumonia, unspecified organism; N17.0 Acute kidney failure with tubular necrosis; D68.69 Other thrombophilia; E46 Unspecified protein-calorie malnutrition; Z68.41 Body mass index [BMI] 40.0-44.9, adult; E87.1 Hypo-osmolality and hyponatremia; R57.9 Shock, unspecified; Z99.11 Dependence on respirator [ventilator] status; I50.33 Acute on chronic diastolic (congestive) heart failure; D63.8 Anemia in other chronic diseases classified elsewhere; E11.9 Type 2 diabetes mellitus without complications; E66.9 Obesity, unspecified; Z88.6 Allergy status to analgesic agent; E87.6 Hypokalemia; F10.10 Alcohol abuse, uncomplicated; Y90.9 Presence of alcohol in blood, level not specified; F17.200 Nicotine dependence, unspecified, uncomplicated; I27.20 Pulmonary hypertension, unspecified; I45.9 Conduction disorder, unspecified; I48.0 Paroxysmal atrial fibrillation; I49.5 Sick sinus syndrome; J43.9 Emphysema, unspecified; Z79.01 Long term (current) use of anticoagulants; Z79.4 Long term (current) use of insulin; Z79.899 Other long term (current) drug therapy; Z87.11 Personal history of peptic ulcer disease; Z90.710 Acquired absence of both cervix and uterus; Z99.81 Dependence on supplemental oxygen
CPT/HCPCS: 33208; 36415; 36600; 84145; 87400; 96365; 96366; 99285; J3490; J7620; J7626; 36573; 71045; 71275; 80048; 80053; 80162; 81001; 82040; 82803; 82962; 83036; 83605; 83735; 83880; 84100; 84132; 84478; 84484; 85014; 85018; 85025; 85520; 87040; 87070; 87081; 87086; 87205; 93005; 93306; 93970; 94002; 94003; 94150; 94640; 99156; 99157; C1779; C1785; C1892; G0378; J0690; J0696; J1644; J1650; J1940; J1956; J2250; J2405; J2543; J2704; J3010; J3370; J7060; P9047; Q9967; C1751; C9113; J0330; J1120; J1160; J1200; J1815; J2060; J2270; J2370; J2920; J2930; J3475; J7030; J7040; J7050; J7512; Q0163